=== PATIENT | male | born 1955 | race Caucasian/White ===

== ENCOUNTER 2023-10-24 17:02 | Emergency (ER) | payer MEDICARE, SELFPAY ==
[2023-10-24 17:03] VITALS: BP 146/86; PULSE 100; RESP 19; TEMP 36.4; O2SAT 100
[2023-10-24 17:53] LABS: Influenza A QL RT-PCR Negative (Negative); Influenza B QL RT-PCR Negative (Negative); RSV RNA, RT-PCR Negative (Negative); SARS-CoV-2 RNA PCR Negative (Negative)
[2023-10-24 19:45] VITALS: BP 149/83; PULSE 92; RESP 16; O2SAT 99
--- NOTE | 2023-10-24 19:45 | PC.NURSE ---
Pt and up to triage desk stating that they would like to leave. States they will attempt to get a PMD on Friday. VS rechecked and stable. Encouraged pt to stay to see ERP. Declined at this time. Pt axox4 and ambulatory to parking lot with steady gait.
== END 2023-10-24 20:59 | disposition left against medical advice (07) ==
PROVIDERS: Emergency Provider Emergency Medicine; PCP Internal Medicine
DX: R06.02 Shortness of breath (principal); Z20.822 Contact with and (suspected) exposure to COVID-19
CPT/HCPCS: 87637; 99199

== ENCOUNTER 2024-01-20 15:22 | Outpatient (CLI) | payer MEDICARE, OTHER, SELFPAY ==
--- NOTE | ~2024-01-20 | XR_ITS ---
XR chest 2V DATE: 01/20/2024 15:37 INDICATION: Dyspnea TECHNIQUE: 2 views COMPARISON: None FINDINGS: Heart size is upper limits of normal. There is aortic arch calcification and mild aortic un folding. Small pleural effusions, right greater than left. There is mild prominence of the fissures suggesting subpleural edema. Diffuse pulmonary interstitial prominence is noted, including Mc B lines, which may be due to pul monary interstitial edema and/or pulmonary interstitial fibrotic change. No prior radiographs are dian ilable for comparison. Moderate bilateral hyperinflation. Minimal atelectasis is suggested at the lung bases. No pneumothora x. Osteopenia. IMPRESSION: Congestive changes, including small pleural effusions Reviewed, dictated and finalized at location B.
== END 2024-01-20 15:23 ==
PROVIDERS: PCP Family Medicine; Visit Provider Family Medicine
DX: K62.5 Hemorrhage of anus and rectum (principal); R06.00 Dyspnea, unspecified; J90 Pleural effusion, not elsewhere classified
CPT/HCPCS: 71046

== ENCOUNTER 2024-01-22 15:43 | Outpatient (CLI) | payer MEDICARE, OTHER, SELFPAY ==
--- NOTE | ~2024-01-22 | CT_ITS ---
EXAMINATION: CT lung screening DATE: 01/22/2024 16:01 INDICATION: Z87.891 - Personal history of nicotine dependence TECHNIQUE: Computed tomography (CT) of the chest was performed without intravenous contrast. Addition al 3D reconstructions utilizing coronal maximum intensity projection (MIP) were performed. Automated exposure control and iterative reconstruction technique were employed. The dose-length product was 82 .22 mGy-cm. COMPARISON: None FINDINGS: Severe upper lung predominant emphysema with moderate biapical pleural-parenchymal scarring. Small bi lateral posterior layering pleural effusions, right greater than left with mild compressive atelectas is in the bilateral lower lobes. There is mild smooth septal line thickening at the bilateral lung ba ses consistent with minimal pulmonary edema. 4 mm nodule at the costophrenic angle of the right lower lobe. 5 mm spiculated nodule at the left upper lobe. There are a few additional scattered <4 mm pulm onary nodules in both lungs. Calcified right hilar lymph nodes along with multiple tiny splenic calci fications consistent with old granulomatous disease. Heart size normal there are coronary artery calc ifications. No pericardial effusion. Thoracic aorta is normal in caliber. Mild mediastinal and right hilar lymphadenopathy which is likely reactive. Mild thoracic spondylosis. IMPRESSION: 1. Lung-RADS category 2: Benign appearance or behavior. Continue annual screening with noncontrast lo w-dose chest CT in 12 months. 2. Severe emphysema. 3. Mild mediastinal and right hilar lymphadenopathy which is likely reactive. Reviewed, dictated and finalized at location A. IMPRESSION: 1. Lung-RADS category 2: Benign appearance or behavior. Continue annual screeni ng with noncontrast low-dose chest CT in 12 months. 2. Severe emphysema. 3. Mild mediastinal and right hilar lymphadenopathy which is likely reactive.
== END 2024-01-22 15:44 ==
LOC: MICIMG 15:44
PROVIDERS: PCP Family Medicine; Visit Provider Family Medicine
DX: Z12.2 Encounter for screening for malignant neoplasm of respiratory organs (principal); Z87.891 Personal history of nicotine dependence; J43.9 Emphysema, unspecified; R91.8 Other nonspecific abnormal finding of lung field
CPT/HCPCS: 71271

== ENCOUNTER 2024-02-05 07:19 | Day surgery (SDC) | payer MEDICARE, OTHER, SELFPAY ==
[2024-01-14 10:51] VITALS: BMI 23.6
[2024-01-27 11:18] VITALS: BMI 23.6
[2024-02-05 08:30] VITALS: BP 132/88; PULSE 75; RESP 18; TEMP 36.6; O2SAT 100; BMI 22.8
[2024-02-05] MEDS: LACTATED RINGERS 1,000 ML 150 ML IV CONT (08:43)
--- NOTE | 2024-02-05 09:08 | PM.HPGS ---
History of Present Illness History of Present Illness Consent: Risks, benefits, and alternatives have been discussed and questions answered. Patient agrees to proceed with procedure. Chief complaint: Hemorrhage of Anus and Rectum Narrative: Jayro Silvestre is a 68 year old male referred for colonoscopy. Patient has had bright red blood per rectum typically with wiping. This lasted for approximately 6 months. This appeared to be separate from bowel movements. He has had only occasional discomfort. The bleeding itself has lessened over the recent weeks. Patient denies any weight loss. He referred today for colonoscopy. Family history is noncontributory. Review of Systems Review of Systems: All systems reviewed & are unremarkable except as noted in HPI and below PMFSH Family History Family History (Updated 01/13/24 @ 07:30 by Tiny Caban CMA) Mother Cancer Social History Social History (Updated 01/13/24 @ 07:34 by Tiny Caban CMA) Smoking packs per day: 2 Smoking cigarettes per day: 40.0 Years smoked: 40 Smoking pack-years: 80.00 Smoking status: Heavy tobacco smoker Tobacco type: cigarettes Alcohol intake: current Drinks per week: 24 Alcohol use details: 12pack week plus Coor Light Substance use: never Substance use type: does not use Living arrangements: alone Gender identity (if verbalized by the patient): Male Sexual Orientation (if Verbalized by the Patient): Straight or Heterosexual Spiritual care concerns: No Agree to blood products: Yes Meds Home Medications and Allergies Home Medications Medication Instructions Recorded Confirmed Type albuterol sulfate 90 mcg/actuation 1 puff inhalation Q4H PRN 01/13/24 02/05/24 Rx aerosol inhaler shortness of breath or wheezing #8.5 grams aspirin 81 mg tablet,delayed 81 mg PO DAILY 01/13/24 02/05/24 History release (Adult Low Dose Aspirin) prednisone 20 mg tablet 40 mg PO DAILY #10 tabs 01/13/24 02/05/24 Rx tamsulosin 0.4 mg capsule 0.4 mg PO QHS #30 caps 01/13/24 02/05/24 Rx Allergies Allergy/AdvReac Type Severity Reaction Status Date / Time codeine AdvReac Mild Nausea Verified 02/05/24 08:10 Vital Signs Vital Signs - 24 hr 02/05/24 08:30 Temperature 98 F Pulse Rate 75 Respiratory Rate 18 Blood Pressure 132/88 Pulse Oximetry 100 Oxygen Delivery Room Air Exam Narrative: Physical exam reveals patient to be alert. Vital signs stable. HEENT exam is unremarkable. Patient is anicteric. Lungs is are clear to auscultation and percussion. Heart is without murmur or extra sounds. Abdomen bowel sounds are present soft nontender with no organomegaly. Digital external rectal exam normal. Assessment and Plan Assessment and plan (1) BRBPR (bright red blood per rectum): Code(s): K62.5 - Hemorrhage of anus and rectum Status: Acute Assessment and Plan: BRBPR With wiping that has persisted for 6 months. Appears to have lessened recently. Suspect this may be related hemorrhoids colonoscopy will be performed to exclude other conditions. He may benefit from surgical therapy of these hemorrhoids.
--- NOTE | 2024-02-05 09:11 | P.PNAN_ITS ---
Anes - Initial Pre Proc Eval Procedure: Operation Date: 02/05/24 09:30 Proposed Procedures p Diagnostic Colonoscopy - Jared Bone MD Date/Time: 02/05/24 09:11 Surgeon: Jared Bone MD Pre Op Diagnosis: Hemorrhage of Anus and Rectum Patient Data Age: 68 Gender: M Height: 1.83 m Weight: 76.6 kg Last Vital Signs Temp 36.6 C 02/05/24 08:30 Pulse 75 02/05/24 08:30 Resp 18 02/05/24 08:30 BP 132/88 02/05/24 08:30 Pulse Ox 100 02/05/24 08:30 O2 Del Method Room Air 02/05/24 08:30 Allergies Allergy/AdvReac Type Severity Reaction Status Date / Time codeine AdvReac Mild Nausea Verified 02/05/24 08:10 Home Medications Medication Instructions Recorded Confirmed Type albuterol sulfate 90 mcg/actuation 1 puff inhalation Q4H PRN 01/13/24 02/05/24 Rx aerosol inhaler shortness of breath or wheezing #8.5 grams aspirin 81 mg tablet,delayed 81 mg PO DAILY 01/13/24 02/05/24 History release (Adult Low Dose Aspirin) prednisone 20 mg tablet 40 mg PO DAILY #10 tabs 01/13/24 02/05/24 Rx tamsulosin 0.4 mg capsule 0.4 mg PO QHS #30 caps 01/13/24 02/05/24 Rx Patient hx anesthesia problems: none Family hx anesthesia problems: none Results Review: All pre-operative results and documents have been reviewed as part of the pre- operative evaluation. [facility]LY [facility], [facility] Past Medical History Medical History COPD (chronic obstructive pulmonary disease) CVA (cerebral vascular accident) Family History Family History Mother Cancer Social History Social History Smoking packs per day: 2 Smoking cigarettes per day: 40.0 Years smoked: 40 Smoking pack-years: 80.00 Smoking status: Heavy tobacco smoker Tobacco type: cigarettes Alcohol intake: current Drinks per week: 24 Alcohol use details: 12pack week plus Coor Light Substance use: never Substance use type: does not use Living arrangements: alone Gender identity (if verbalized by the patient): Male Sexual Orientation (if Verbalized by the Patient): Straight or Heterosexual Spiritual care concerns: No Agree to blood products: Yes Anes - Eval Final PreProcedure Day of Procedure 02/05/24 09:11 Patient weight: normal Heart: regular rate and rhythm Lungs: decreased breath sounds Airway: Mallampati scale class II Neurological: alert and oriented Last oral intake: >/= 8 hours ASA classification: III Emergent: no Anesthetic plan: proceed Anesthesia type and monitoring: general GIVS and standard monitoring Results Review: All pre-operative results and documents have been reviewed as part of the pre- operative evaluation. Informed Consent: The patient's anesthetic plan and its attendant risks and benefits were discussed with the patient/family/POA. Questions were solicited and answers provided to the satisfaction of the patient/family/POA.
[2024-02-05 10:15] VITALS: BP 107/67; PULSE 63; RESP 16; O2SAT 95
[2024-02-05 10:25] VITALS: BP 100/57; PULSE 70; RESP 16; O2SAT 97
--- NOTE | 2024-02-05 10:34 | WPDANESPN ---
Anes - Prog Note Post-Op Date/Time: 02/05/24 10:34 Cardiovascular status: normal Respiratory status: normal Airway patency: baseline Mental status: baseline Post-Op hydration status: normal Vital Signs: Last Vital Signs Temp 36.6 C 02/05/24 08:30 Pulse 70 02/05/24 10:25 Resp 16 02/05/24 10:25 BP 100/57 L 02/05/24 10:25 Pulse Ox 97 02/05/24 10:25 O2 Del Method Room Air 02/05/24 10:25 Pain Score (VAS): 0 I/O: Intake & Output 02/04/24 02/05/24 02/05/24 23:59 07:59 15:59 Intake Total 600 Balance 600 Patient Feedback: Patient satisfied with anesthetic care.
[2024-02-05 10:35] VITALS: BP 115/72; PULSE 70; RESP 20; O2SAT 95
== END 2024-02-05 10:47 | disposition home or self-care (01) ==
PROVIDERS: PCP Family Medicine; Visit Provider Internal Medicine Gastroenterology
PROC: 0DJD8ZZ Inspection of Lower Intestinal Tract, Via Natural or Artificial Opening Endoscopic (ICD-10-PCS; CPT 45378; principal; 2024-02-05 09:30)
DX: K62.5 Hemorrhage of anus and rectum (principal); D12.5 Benign neoplasm of sigmoid colon; K57.30 Diverticulosis of large intestine without perforation or abscess without bleeding; K64.8 Other hemorrhoids
CPT/HCPCS: 45385

== ENCOUNTER 2024-02-05 10:44 | Outpatient (NON) | payer MEDICARE, OTHER, SELFPAY | END 2024-02-05 10:45 | disposition home or self-care (01) | LOC: ANHLAB 02-06 10:47 | PROVIDERS: PCP Family Medicine; Visit Provider Internal Medicine Gastroenterology | DX: K62.5 Hemorrhage of anus and rectum (principal); D12.4 Benign neoplasm of descending colon; D12.5 Benign neoplasm of sigmoid colon | CPT/HCPCS: 88305 ==

== ENCOUNTER 2024-02-18 05:34 | Inpatient (IN) | payer MEDICARE, OTHER, SELFPAY ==
[2024-02-18] VITALS (31 sets, daily range): BP systolic 115–158; BP diastolic 64–111; PULSE 65–137; RESP 14–28; TEMP 36.4–36.8; O2SAT 87–98
--- NOTE | 2024-02-18 | ECHO_ITS ---
Patient Info Name: Jayro Silvestre Age: 68 years : 1955 Gender: Male Ht: 72 in Wt: 169 lbs BSA: 1.97 m2 HR: 77 bpm BP: 115 / 64 mmHg Heart Rhythm: Sinus Rhythm Technical Quality: Good Exam Date: 02/18/2024 3:16 PM Exam Location: Echo Lab Patient Status: Inpatient Admit Date: 02/18/2024 Staff Ordering Physician: Karen Latham APRN Sand Molder: Hilario Schulte RDCS Attending Provider: Elicia Caicedo MD Referring Physician: Noa ELLIS; Exam Type: CA echo dop color flow w con Study Info Indications - elevated bnp R06.02 - Shortness of breath Complete two-dimensional, color flow and Doppler transthoracic echocardiogram is performed with contrast to opacify the left ventricle and to improve the deliniation of the left ventricle endocardial borders. Contrast/Agitated Saline Contrast/Ag. Saline: Definity Amount: 5.00 ml Existing IV Access: Yes Summary 1. Left ventricular chamber dimension is severely enlarged. 2. Left ventricular systolic function is severely reduced, estimated at 20-25%. 3. There is mildly increased left ventricular wall thickness. 4. The left ventricular diastolic function is grade III diastolic dysfunction. 5. Left atrial chamber dimension is severely enlarged. 6. There is mild aortic valve regurgitation. 7. There is moderate mitral valve regurgitation. 8. There is mild tricuspid valve regurgitation. 9. Mild pulmonary hypertension, estimated pulmonary arterial systolic pressure is 40 mmHg. 10. The aortic root size at the sinus of Valsalva is mildly dilated. Left Ventricle Left ventricular chamber dimension is severely enlarged. Left ventricular systolic function is severely reduced, estimated at 20-25%. There is mildly increased left ventricular wall thickness. The left ventricular diastolic function is grade III diastolic dysfunction. Right Ventricle Right ventricular chamber dimension is normal. Right ventricular systolic function is normal. Left Atria Left atrial chamber dimension is severely enlarged. Right Atria Right atrial chamber dimension is normal. Atrial Septum Suspected patent foramen ovale visualized by color flow imaging. Aortic Valve The aortic valve is trileaflet. There is mild aortic valve sclerosis. There is no aortic valve stenosis. There is mild aortic valve regurgitation. Pulmonic Valve The pulmonic valve is normal. There is no pulmonic valve stenosis. There is trace pulmonic regurgitation. Mitral Valve The mitral valve has thickened leaflets. There is no mitral valve stenosis. There is moderate mitral valve regurgitation. Tricuspid Valve The tricuspid valve leaflets are normal. There is no significant tricuspid valve stenosis. There is mild tricuspid valve regurgitation. Mild pulmonary hypertension, estimated pulmonary arterial systolic pressure is 40 mmHg. Pericardium/Pleural The pericardium appears normal. There is trivial pericardial effusion. Inferior Vena Cava Dilated inferior vena cava with <50% collapse upon inspiration consistent with elevated right atrial pressure, 15 mmHg. Aorta The aortic root size at the sinus of Valsalva is mildly dilated. Left Ventricular Outflow Tract Name Value Normal LVOT 2D LVOT Diameter 2.24 cm L
--- NOTE | ~2024-02-18 | XR_ITS ---
EXAMINATION: XR chest 1V portable DATE: 02/18/2024 05:57 INDICATION: Dyspnea. TECHNIQUE: A single frontal view of the chest was obtained on 2 radiographs. COMPARISON: Chest 2 views 01/20/2024, chest CT 01/22/2024 FINDINGS: There are lucencies in the lungs, consistent with emphysema. There is a diffuse interstitia l pattern in the lungs, consistent with pulmonary edema. There are small pleural effusions. No pneumo thorax. The heart size is normal. IMPRESSION: 1. Mild pulmonary edema. 2. Small pleural effusions. 3. Severe emphysema. Reviewed, dictated and finalized at location A.
--- NOTE | ~2024-02-18 | US_ITS ---
EXAMINATION: US arterial ankle brachial ind DATE: 02/20/2024 10:55 INDICATION: Claudication and leg cramping. Tobacco abuse. TECHNIQUE: Segmental pressures and plethysmographic and Doppler waveforms of the brachial and lower e xtremity arteries were obtained. COMPARISON: None. FINDINGS: Right and left brachial artery pressures of 116 mm Hg and 121 mm Hg, respectively, are concordant (no rmal difference <= 30 mmHg). The right ankle-brachial index (VERO) is 0.88 (normal >= 0.9-1.0). The right great toe-brachial index (TBI) is 0.50 (normal >= 0.65). Arterial Doppler waveforms are biphasic at the right posterior tibial artery and monophasic at the right dorsalis pedis artery, both with brisk systolic upstrokes. The left VERO is 0.54. The left TBI is 0.25. Arterial Doppler waveforms are biphasic with brisk systo lic upstrokes at both left posterior tibial and dorsalis pedis arteries. IMPRESSION: 1. Arterial occlusive disease to bilateral lower limbs with mildly decreased right VERO and TBI and mo derately decreased left VERO and TBI. Reviewed, dictated and finalized at location A. IMPRESSION: 1. Arterial occlusive disease to bilateral lower limbs with mildly decreased ri ght VERO and TBI and moderately decreased left VERO and TBI.
--- NOTE | 2024-02-18 05:40 | ECG_ITS ---
Test Date: 2024-02-18 05:41:15 Measurements Intervals [place] Rate: 133 P: 70 SD: 151 QRS: 11 QRSD: 121 T: 86 QT: 292 QTc: 435 Interpretive Statements SINUS TACHYCARDIA WITH OCCASIONAL VENTRICULAR PREMATURE COMPLEXES MODERATE INTRAVENTRICULAR CONDUCTION DELAY [110+ ms QRS DURATION] NONSPECIFIC ST & T-WAVE ABNORMALITY No previous ECG available for comparison Electronically Signed On 02-18-2024 14:46:04 CDT by Max Smith M.D.
--- NOTE | 2024-02-18 05:49 | ED.GENADULT ---
HPI - General Adult General Chief complaint: Shortness of Breath/Dyspnea Stated complaint: DIFFICULTY IN BREATHING Time Seen by Provider: 02/18/24 05:42 History of Present Illness HPI narrative: patient is a 68-year-old gentleman who presents emergency department with chief complaint of shortness of breath. Patient reports he has history of COPD uses inhalers of the does not use home oxygen. The patient reports that he still smokes reports that last couple of days been having progressive shortness of breath. Patient reports he EMS was called this morning his symptoms got worse he was found to be profoundly hypoxic and also to be tachycardic and tachypneic. Related Data Home Medications Medication Instructions Recorded Confirmed aspirin 81 mg tablet,delayed 81 mg PO DAILY 01/13/24 02/05/24 release (Adult Low Dose Aspirin) Allergies Allergy/AdvReac Type Severity Reaction Status Date / Time codeine AdvReac Mild Nausea Verified 02/05/24 08:10 Review of Systems Review of Systems: A 10 system review of systems was completed on the patient and is negative except for what is stated in the HPI. Nursing and ancillary documentation was reviewed. [facility] Past Medical History Medical History COPD (chronic obstructive pulmonary disease) CVA (cerebral vascular accident) Family History Family History Mother Cancer Social History Social History Smoking packs per day: 2 Smoking cigarettes per day: 40.0 Years smoked: 40 Smoking pack-years: 80.00 Smoking status: Heavy tobacco smoker Tobacco type: cigarettes Alcohol intake: current Drinks per week: 24 Alcohol use details: 12pack week plus Coor Light Substance use: never Substance use type: does not use Living arrangements: alone Gender identity (if verbalized by the patient): Male Sexual Orientation (if Verbalized by the Patient): Straight or Heterosexual Spiritual care concerns: No Agree to blood products: Yes Exam Narrative: GENERAL: Well-appearing, well-nourished, and in no acute distress. HEAD: Normocephalic, atraumatic. EYES: PERRLA and EOMI. ENT: Nares clear, no rhinorrhea or epistaxis. Mucous membranes moist. NECK: Supple. CHEST: diminished breath sounds to auscultation. mild increased respiratory rate. HEART: Effective for rate and regular rhythm. No murmur heard. Normal peripheral pulses. ABDOMEN: Soft, nontender, nondistended, normal active bowel sounds. EXTREMITIES: Normal range of motion. No edema. SKIN: Warm, dry, no rash. NEURO: No focal deficits. Alert and oriented x3. PSYCH: Normal mood and affect. Course Vital Signs Vital signs: Vital Signs Temperature 36.8 C 02/18/24 05:27 Pulse Rate 137 H 02/18/24 05:27 Respiratory Rate 26 H 02/18/24 05:27 Blood Pressure 158/111 H 02/18/24 05:27 Pulse Oximetry 87 L 02/18/24 05:27 Oxygen Delivery Room Air 02/18/24 05:27 Temperature 36.8 C 02/18/24 05:27 Pulse Rate 125 H 02/18/24 06:00 Respiratory Rate 28 H 02/18/24 06:00 Blood Pressure 125/93 H 02/18/24 05:49 Pulse Oximetry 95 02/18/24 05:49 Oxygen Delivery Nasal Cannula 02/18/24 05:41 Oxygen Flow Rate 2 02/18/24 05:41 Medical Decision Making [facility] Narrative Medical decision making narrative: differential diagnosis includes pneumonia, CHF, pulmonary edema, ACS tele EKG showed sinus tachycardia patient's oxygen levels improved with 2 L nasal cannula ABG showed a pH of 7.314 pCO2 is 44.5 PO2 of 76.3 with a 94% saturation electrolytes showed a BUN of 25 and creatinine 1.8 we do not have a previous 1 to compare to magnesium was 1.9 chest x-ray showed FINDINGS: There are lucencies in the lungs, consistent with emphysema. There is a diffuse interstitial pattern in the lungs,
[2024-02-18] MEDS: IPRATROPIUM BR 0.02% INH SOLN 0.5 MG/2.5 ML VIAL 1 MG INHALATION (05:56)
[2024-02-18] MEDS: ALBUTEROL SULFATE NEB 2.5 MG/3 ML INH 10 MG INHALATION (05:56)
[2024-02-18 06:06] LABS: Basophils Absolute Auto 0.1 K/mm3 (0.0-0.1); Basophils Percent Auto 0.5 % (0.2-1.2); Eosinophils Absolute Auto 0.1 K/mm3 (0-0.3); Eosinophils Percent Auto 0.8 % (0-4.4); Hematocrit 51.7 % (42.0-52.0); Immature Granulocyte Absolute 0.03 K/mm3 (0.00-0.031); Immature Granulocyte Percent A 0.2 % (0-0.5); Lymphocytes Absolute Auto 3.69 K/mm3 (0.9-3.2); Lymphocytes Percent Auto 28.3 % (18.3-44.2); Mean Corpuscular HGB Conc 32.9 g/dl (32-36); Mean Corpuscular Hemoglobin 32.6 pg (26-34); Mean Platelet Volume 11.1 fl (7.4-10.4); Monocytes Percent Auto 7.7 % (2.6-8.5); Neutrophils Absolute Auto 8.1 K/mm3 (1.3-6.7); Neutrophils Percent Auto 62.5 % (45.5-73.1); Platelet Count Result 233 k/mm3 (150-375); Red Blood Count 5.22 M/mm3 (4.6-6.20); Red Cell Distribution Width 14.2 % (11.5-14.5)
[2024-02-18] MEDS: methylPREDNISolone SOD SUCC 125 MG VIAL IV PUSH (06:13)
[2024-02-18] MEDS: SODIUM CHLORIDE 0.9% IV 1,000 ML 999 ML IV CONT (06:13)
[2024-02-18 06:15] LABS: Alveolar/Arterial O2 Gradient 230.1 mmHg; Base Excess ABG -4.1 mEq/l (+/-2.0); Fractional Inspired Oxygen 50 %; HCO3 ABG 22.1 mEq/l (22.0-26.0); Oxygen Content ABG 21.6 %vol (16.0-22.0); Oxygen Saturation ABG 94.1 % (95.0-100.0); Oxyhemoglobin 91.4 % THb (90.0-100.0); PCO2 ABG 44.5 mmHg (35.0-45.0); PO2 ABG 76.3 mmHg (80.0-100.0); PO2 FiO2 Ratio Arterial Blood 1.53 %; Total Hemoglobin 16.8 g/dL (12.0-18.0); pH ABG 7.314 (7.350-7.450)
[2024-02-18 06:17] LABS: Alanine Aminotransferase 44 U/L (6-50); Albumin Level 4.4 g/dL (3.5-5.1); Alkaline Phosphatase 87 U/L (38-126); Anion Gap 10 mmol/L (4-12); Aspartate Amino Transferase 52 U/L (17-59); Bilirubin,Total 0.6 mg/dL (0.2-1.3); Blood Urea Nitrogen 25 mg/dL (9-20); Calcium 8.5 mg/dL (8.4-10.2); Carbon Dioxide 23 mmol/L (22-30); Chloride 111 mmol/L (98-107); Estimated CRCL calculation 40 ml/min; Estimated Glomerular Filt Rate 38; Glucose 121 mg/dL (65-110); Potassium 3.9 mmol/L (3.4-5.0); Sodium 144 mmol/L (137-145)
[2024-02-18 06:17] LABS: Modified Allen's Test Pass; Site Drawn RIGHT RADIAL
[2024-02-18 06:18] LABS: Device OTHER DEVICE
[2024-02-18 06:23] LABS: Lipase 46 U/L (23-300); Magnesium 1.9 mg/dL (1.6-2.3)
[2024-02-18 06:37] LABS: NT Pro B Type Natriuretic Pept 14800 pg/mL (19.9-100); Troponin I 0.039 ng/mL (0.000-0.034)
[2024-02-18 06:42] LABS: Lactic Acid Reflex 1.5 mmol/L (0.7-2.0)
[2024-02-18 06:51] LABS: Procalcitonin 0.1 ng/mL
[2024-02-18] MEDS: ASPIRIN 81 MG CHEWABLE TABLET 324 MG PO (06:51)
[2024-02-18 07:09] LABS: Influenza A QL RT-PCR Negative (Negative); Influenza B QL RT-PCR Negative (Negative); RSV RNA, RT-PCR Negative (Negative); SARS-CoV-2 RNA PCR Negative (Negative)
[2024-02-18] MEDS: FUROSEMIDE INJ 40 MG/4 ML VIAL IV PUSH ×2 (07:34→20:43)
[2024-02-18] MEDS: IPRATROPIUM 0.5 MG/ALBUTEROL SULFATE 2.5 MG AMPUL.NEB 3 ML INHALATION ×3 (08:22→20:16)
[2024-02-18 11:02] LABS: Appearance Urine Clear (Clear); Bacteria Urine None Seen /hpf; Bilirubin Urine Negative (Negative); Blood Urine 1+ (Negative); Calcium Oxalate Crystals Urine Present /hpf; Color Urine Yellow (Yellow); Glucose Urine UA Negative (Negative); Ketones Urine Negative (Negative); Leukocyte Esterase Ur Negative LEU/UL (Negative); Nitrate Urine Negative (Negative); Non Pathogenic Casts 0-2; Protein Urine 1+ mg/dL (Negative); Squamous Epithelial Cell Urine None Seen /hpf (Few); Urobilinogen Urine 0.2 mg/dL (<2.0); WBC Urine 0-5 /hpf (0-3)
[2024-02-18 11:03] LABS: Add Urine Microscopic? YES
--- NOTE | 2024-02-18 12:18 | ECG_ITS ---
Test Date: 2024-02-18 13:31:25 Measurements Intervals [place] Rate: 77 P: 13 [place]: 160 QRS: 4 QRSD: 117 T: 245 QT: 422 QTc: 478 Interpretive Statements SINUS RHYTHM WITH SINUS ARRHYTHMIA INCOMPLETE RIGHT BUNDLE BRANCH BLOCK [90+ ms QRS DURATION, TERMINAL R IN V1/V2, 40+ ms S IN I/aVL/V4/V5/V6] LEFT VENTRICULAR HYPERTROPHY INFEROLATERAL ST AND T-WAVE ABNORMALITY, CONSIDER ISCHEMIA POSSIBLE SEPTAL MYOCARDIAL INFARCTION , PROBABLY OLD [30 ms Q WAVE IN V1/V2] ABNORMAL ECG Electronically Signed On 02-19-2024 15:05:34 CDT by Milad Frye M.D.
[2024-02-18 13:09] LABS: Troponin I 0.225 ng/mL (0.000-0.034)
--- NOTE | 2024-02-18 13:38 | PC.NURSE ---
spoke with Dr Caicedo, educated on increased troponin. stated if pt has CP, he should go to IMU, if not Tele would be appropriate spoke to Karen CABALLERO, will add additional lab tests. pt is asymptomatic, states feeling better
[2024-02-18] MEDS: methylPREDNISolone SOD SUCC 125 MG VIAL 60 MG IV PUSH ×2 (14:18→20:45)
[2024-02-18] MEDS: PERFLUTREN LIPID MICROSPHERES 1.5 ML VIAL DILUTED TO 10 ML TOTAL VOLUME IV PUSH (15:57)
--- NOTE | 2024-02-18 15:57 | IVDEFINITY ---
Prior to administration of IV Definity the patient was educated on the risks and benefits of the imaging enhancing agent including potential adverse side effects. The patient verbalized understanding. Allergies were verified. No exclusion criteria were identified and at least one of the following inclusion criteria were met: 1) physician request, 2) patient technically difficult to image (per the [place] [employer] guidelines of two or more segments not discernable within the apical view), or 3) questionable left ventricular function. ?
--- NOTE | 2024-02-18 16:07 | ADMGEN ---
This patient, Jayro Silvestre, was admitted to Medical Room 261-01. Patient/family oriented to hospital policies and general routines including ID bracelet, bed and alarms, visiting hours, pain management, procedures, bathroom and other care routines, personal items, smoking policy, room service/diet, and visiting hours. Information on how to activate the Rapid Response Team has been discussed. Patient/Family are encouraged to report perceived risks to care and to ask questions if they do not understand what they are told or what they should do.
[2024-02-18] MEDS: AZITHROMYCIN 500 MG/NS 250 ML 500 MG/250 ML BAG 250 MG IVPB (16:36)
[2024-02-18 16:43] LABS: Troponin I 0.238 ng/mL (0.000-0.034)
--- NOTE | 2024-02-18 21:21 | PM.IMHP ---
H&P: HPI History of Present Illness Date/Time: 02/18/24 14:38 Chief Complaint: Shortness of Breath Narrative: 68 y/o M presents here with shortness of breath with PMH of COPD, BPH, and CVA (2019). The patient presents here from home via EMS for further evaluation of shortness of breath and hypoxia. Patient reports he has been short of breath for the past 6 months and has been insidious. However worsened significantly in the last month. Today he was unable to take his inhaler due to the severity of the shortness of breath which prompted him to call EMS. Accompanied by cough intermittent and somewhat copious. Denying fever, chills, body aches, or lower extremity swelling. Patient reports previously that he only obtained relief from his shortness of breath with oral steroids. Per EMS report, patient was outside in distress upon their arrival. Initial sat was 75% on room air. Given 2 DuoNeb treatments in route to the hospital and increased briefly 96% on RA. Arrived to [facility] ED with sat of 87% on RA. No recent travel/long car rides, no recent major surgeries, did have a colonoscopy last week. Current smoker 1.5-2 PPD for the past 45 years, is interested in cessation. Initial VS at presentation: 98.2? F, HR 137, RR 26, 158/111, and 87% on RA. ED workup showed: WBC 13.0, no anemia, creatinine 1.8 and GFR 38 (no previous for comparison), initial troponin 0.039, BNP 95334, procal 0.1, UA not consistent with UTI. Viral PCR negative. CXR showed mild pulmonary edema, small pleural effusions, and severe emphysema. Review of Systems Review of Systems: All systems reviewed & are unremarkable except as noted in HPI and below [facility] Past Medical History Medical History (Updated 02/18/24 @ 21:31 by Karen Latham APRN) BPH (benign prostatic hyperplasia) COPD (chronic obstructive pulmonary disease) Current every day smoker CVA (cerebral vascular accident) (2019) HLD (hyperlipidemia) Kidney stones Vitamin D deficiency Surgical History Surgical History History of lithotripsy Family History Family History (Updated 02/18/24 @ 16:08 by Citlaly Luna RN) Mother Cancer Father Cancer Social History Social History Smoking packs per day: 2 Smoking cigarettes per day: 40.0 Years smoked: 40 Smoking pack-years: 80.00 Smoking status: Current every day smoker Tobacco type: cigarettes Alcohol intake: current Drinks per week: 20 Alcohol use details: 12pack week plus Coor Light Substance use: never Substance use type: does not use Do You Feel Safe in your Home?: Yes Lack of Transportation: No Lack of Food: Never True Current Housing: I Have Housing Concerned About Future Housing: No Difficulty Paying Gas/Electric Bills: No Difficulty Paying for Meds: YES Currently Unemployed: No Education: High School Diploma/GED Difficulty w/ Childcare or Family Care: No Living arrangements: alone Gender identity (if verbalized by the patient): Male Sexual Orientation (if Verbalized by the Patient): Straight or Heterosexual Spiritual care concerns: No Agree to blood products: Yes Meds Home Medications and Allergies Home Medications Medication Instructions Recorded Confirmed Type albuterol sulfate 90 mcg/actuation 1 puff inhalation Q4H PRN 01/13/24 02/18/24 Rx aerosol inhaler shortness of breath or wheezing #8.5 grams aspirin 81 mg tablet,delayed 81 mg PO DAILY 01/13/24 02/18/24 History release (Adult Low Dose Aspirin) prednisone 20 mg tablet 40 mg PO DAILY #10 tabs 01/13/24 02/18/24 Rx tamsulosin 0.4 mg capsule 0.4 mg PO QHS #30 caps 01/13/24 02/18/24 Rx bupropion HCl 150 mg 24 hr tablet, 150 mg PO QAM #90 tabs 02/10/24 02/18/24 Rx extended release (Wellbutrin XL) cholecalciferol (vitamin D3) 1,250 1,250 mcg PO WEEKLY #14 tabs 02/10/24 02/18/24 Rx mcg (50,000 u
[2024-02-19] VITALS (19 sets, daily range): BP systolic 120–123; BP diastolic 72–85; PULSE 62–103; RESP 17–20; TEMP 36.5–36.8; O2SAT 92–96
[2024-02-19] MEDS: IPRATROPIUM 0.5 MG/ALBUTEROL SULFATE 2.5 MG AMPUL.NEB 3 ML INHALATION ×4 (02:22→20:23)
[2024-02-19] MEDS: methylPREDNISolone SOD SUCC 125 MG VIAL 60 MG IV PUSH ×2 (05:43→17:09)
[2024-02-19 06:08] LABS: Basophils Percent Auto 0.1 % (0.2-1.2); Hematocrit 47.1 % (42.0-52.0); Hemoglobin 15.5 g/dL (14.0-18.0); Immature Granulocyte Absolute 0.09 K/mm3 (0.00-0.031); Immature Granulocyte Percent A 0.6 % (0-0.5); Lymphocytes Absolute Auto 0.78 K/mm3 (0.9-3.2); Lymphocytes Percent Auto 5.5 % (18.3-44.2); Mean Corpuscular HGB Conc 32.9 g/dl (32-36); Mean Corpuscular Hemoglobin 32.1 pg (26-34); Mean Corpuscular Volume 97.5 fl (80-100); Mean Platelet Volume 11.6 fl (7.4-10.4); Monocytes Absolute Auto 0.4 K/mm3 (0.1-0.6); Monocytes Percent Auto 3.1 % (2.6-8.5); Neutrophils Absolute Auto 12.8 K/mm3 (1.3-6.7); Neutrophils Percent Auto 90.7 % (45.5-73.1); Platelet Count Result 194 k/mm3 (150-375); Red Blood Count 4.83 M/mm3 (4.6-6.20); Red Cell Distribution Width 14.1 % (11.5-14.5); White Blood Count 14.2 K/mm3 (4.5-10.0)
[2024-02-19 06:24] LABS: Alanine Aminotransferase 31 U/L (6-50); Albumin Level 3.9 g/dL (3.5-5.1); Alkaline Phosphatase 77 U/L (38-126); Anion Gap 8 mmol/L (4-12); Aspartate Amino Transferase 19 U/L (17-59); Bilirubin,Total 0.6 mg/dL (0.2-1.3); Blood Urea Nitrogen 34 mg/dL (9-20); Calcium 8.4 mg/dL (8.4-10.2); Carbon Dioxide 26 mmol/L (22-30); Chloride 105 mmol/L (98-107); Cholesterol 174 mg/dL (0-200); Estimated CRCL calculation 38 ml/min; Estimated Glomerular Filt Rate 36; Glucose 123 mg/dL (65-110); HDL Direct 53 mg/dL; Potassium 4.1 mmol/L (3.4-5.0); Sodium 139 mmol/L (137-145); Triglycerides 55 mg/dL (<150)
[2024-02-19 06:35] LABS: LDL Cholesterol Direct 105 mg/dL
[2024-02-19 06:55] LABS: Hemoglobin A1C 5.3 % (<5.7)
[2024-02-19] MEDS: buPROPion HCL XL (24 HR) 150 MG TABCR PO (08:07)
[2024-02-19] MEDS: guaiFENesin 12 HR 600 MG TABCR PO ×2 (08:07→20:13)
[2024-02-19] MEDS: ASPIRIN 81 MG ENTERIC TABLET PO (08:07)
[2024-02-19] MEDS: FUROSEMIDE INJ 40 MG/4 ML VIAL IV PUSH (08:08)
[2024-02-19 09:01] LABS: Free T4 Free Thyroxine Reflex 0.56 ng/dL (0.78-2.19)
--- NOTE | 2024-02-19 11:54 | PM.IMPN ---
Progress Note: A&P Assessment and Plan (1) Acute hypoxemic respiratory failure: Code(s): J96.01 - Acute respiratory failure with hypoxia Status: Acute Assessment and Plan: - CXR: Mild pulmonary edema. Small pleural effusions. Severe emphysema. - BNP 14,800 - echo pending - not currently on a diuretic, starting Lasix IVP 40 mg daily - daily weights and monitor I&Os - trend renal function - troponin elevated, see below - Well Criteria: 1.5 points, low risk group - telemetry monitoring - suspect multifactorial: new onset CHF and/or COPD exacerbation. Cannot rule out NSTEMI or PE. - hypoxia resolved. (2) Elevated troponin: Code(s): R79.89 - Other specified abnormal findings of blood chemistry Status: Acute Assessment and Plan: - EKG, initial: Sinus tachycardia with occasional PVCs, rate 133, moderate intraventricular conduction delay, nonspecific ST and T-wave abnormality. No previous for comparison. - EKG, repeat (1): Sinus rhythm with sinus arrhythmia, rate 77, incomplete RBBB, left ventricular hypertrophy and ST-T change, possible septal FL infarct probably old. Awaiting formal read. - CXR: Mild pulmonary edema. Small pleural effusions. Severe emphysema. - Troponin: 0.039 -> 0.225 -> 0.238 -> 0.180 - ASA 324 given and SL nitro PRN - lipid panel normal , A1C 5.3, and TSH 15.2 - echo pending - telemetry monitoring - suspect elevation due to tachycardia and hypoxia resulting in demand ischemia (3) COPD exacerbation: Code(s): J44.1 - Chronic obstructive pulmonary disease with (acute) exacerbation Status: Acute Assessment and Plan: - DuoNebs Q6H ADELAIDA - continue Solu-Medrol IVP - start to wean off IV steroids - start azithromycin and ceftriaxone on 02/17 - mucinex ADELAIDA (4) Current every day smoker: Code(s): F17.200 - Nicotine dependence, unspecified, uncomplicated Status: Acute Assessment and Plan: - 1.5-2 PPD x 45 years - interested in cessation, declined nicotine patch - currently on Wellbutrin XL Plan Patient here with shortness of breath. Ruling out new CHF and will treat as concurrent COPD exacerbation. Troponin uptrending initially and now plateaued, suspect this is due to demand (tachycardia) and hypoxia. No active CP. Continue telemetry monitoring. Diet: heart healthy GI Prophylaxis: not currently indicated DVT Prophylaxis: SCDs Lines: peripheral Code Status: full code Subjective Date/time seen: 02/19/24 11:54 Interval history: Patient doing much better today. He is no longer requiring any oxygen. Echocardiogram pending. He denies shortness of breath, chest pain, orthopnea and cough. Exam Narrative: GENERAL: Comfortable, no acute distress HENMT: moist mucous membranes NECK: no lymphadenopathy RESPIRATORY: clear to auscultation although distant, no increased respiratory effort CARDIO: distant heart sounds. GI: soft, nontender, bowel sounds present SKIN/EXTREMITIES: no rashes, no edema, no redness or tenderness NEURO: PROM intact, answers questions appropriately, A&O x4 Objective Data Vital Signs Vital Signs: Vital Signs - 24 hr 02/18/24 12:01 02/18/24 12:16 02/18/24 12:31 Temperature Pulse Rate 67 76 69 Respiratory Rate 16 18 18 Blood Pressure 120/80 132/70 131/64 Pulse Oximetry 96 96 96 Oxygen Delivery Oxygen Flow Rate Fraction of Inspired Oxygen 02/18/24 12:46 02/18/24 13:01 02/18/24 13:16 Temperature Pulse Rate 71 78 74 Respiratory Rate 15 14 17 Blood Pressure 116/77 121/78 115/64 Pulse Oximetry 97 96 96 Oxygen Delivery Oxygen Flow Rate Fraction of Inspired Oxygen 02/18/24 14:16 02/18/24 15:05 02/18/24 15:25 Temperature 97.5 F L Pulse Rate 77 76 Respiratory Rate 18 20 Blood Pressure 134/68 Pulse Oximetry 98 98 Oxygen Delivery Nasal Cannula Oxygen Flow Rate 2 Fraction of Inspired Oxygen 02/18/24 20:19 02/18/24 20:22
[2024-02-19] MEDS: AZITHROMYCIN 500 MG/NS 250 ML 500 MG/250 ML BAG 250 MG IVPB (17:10)
[2024-02-19] MEDS: TAMSULOSIN HCL 0.4 MG CAPSULE PO (20:13)
[2024-02-19] MEDS: MELATONIN 3 MG TABLET PO (21:11)
[2024-02-20] VITALS (34 sets, daily range): BP systolic 109–133; BP diastolic 61–98; PULSE 69–102; RESP 12–20; TEMP 36.3–36.6; O2SAT 88–97
[2024-02-20] MEDS: IPRATROPIUM 0.5 MG/ALBUTEROL SULFATE 2.5 MG AMPUL.NEB 3 ML INHALATION ×4 (01:52→21:13)
[2024-02-20] MEDS: methylPREDNISolone SOD SUCC 125 MG VIAL 60 MG IV PUSH ×2 (05:20→18:12)
[2024-02-20 05:27] LABS: Hematocrit 47.3 % (42.0-52.0); Hemoglobin 15.6 g/dL (14.0-18.0); Mean Corpuscular Hemoglobin 32.2 pg (26-34); Mean Corpuscular Volume 97.7 fl (80-100); Platelet Count Result 205 k/mm3 (150-375); Red Blood Count 4.84 M/mm3 (4.6-6.20); White Blood Count 15.1 K/mm3 (4.5-10.0)
[2024-02-20 05:37] LABS: Anion Gap 7 mmol/L (4-12); Blood Urea Nitrogen 43 mg/dL (9-20); Calcium 8.7 mg/dL (8.4-10.2); Carbon Dioxide 27 mmol/L (22-30); Chloride 104 mmol/L (98-107); Estimated CRCL calculation 38 ml/min; Estimated Glomerular Filt Rate 36; Glucose 115 mg/dL (65-110); Potassium 4.7 mmol/L (3.4-5.0); Sodium 138 mmol/L (137-145)
[2024-02-20] MEDS: buPROPion HCL XL (24 HR) 150 MG TABCR PO (08:45)
[2024-02-20] MEDS: FUROSEMIDE INJ 40 MG/4 ML VIAL IV PUSH (08:45)
[2024-02-20] MEDS: LEVOTHYROXINE SODIUM 50 MCG TABLET PO (08:45)
[2024-02-20] MEDS: guaiFENesin 12 HR 600 MG TABCR PO ×2 (08:45→20:34)
[2024-02-20] MEDS: ASPIRIN 81 MG ENTERIC TABLET PO (08:45)
--- NOTE | 2024-02-20 09:26 | PM.CNCAR ---
Assessment and Plan Assessment and plan (1) Elevated troponin: Code(s): R79.89 - Other specified abnormal findings of blood chemistry Status: Acute Assessment and Plan: Likely secondary to heart failure not ACS/acute plaque rupture (2) New onset of congestive heart failure: Code(s): I50.9 - Heart failure, unspecified Status: Acute Assessment and Plan: As detailed below. Systolic in etiology. (3) Acute systolic (congestive) heart failure: Code(s): I50.21 - Acute systolic (congestive) heart failure Status: Acute Assessment and Plan: Severe cardiomyopathy ejection fraction 20 25%. Will DC IV furosemide and switch him to oral furosemide 40 mg Po daily. Adding carvedilol, Entresto. Catheterization to rule out ischemic disease. Up titrate meds as able. LifeVest of upon discharge. (4) Cardiomyopathy: Code(s): I42.9 - Cardiomyopathy, unspecified Status: Acute Assessment and Plan: New onset. At this point, uncertain etiology. May be related to chronic alcohol use. May be related to underlying coronary disease. Will keep NPO for coronary angiogram today. Continue aspirin 81 mg p.o. daily. Will add carvedilol 6.25 mg p.o. b.i.d.. Add low-dose Entresto 24/26 mg 1 tablet p.o. b.i.d. also. Will need to assess renal function and as well as potassium. As able, add to this regimen including up titrating carvedilol and Entresto and adding Jardiance or Farxiga and spironolactone. Some this obviously will be dependent on the cause/etiology of his cardiomyopathy. He does have hypothyroidism noted on lab work and thyroid should be replaced we will defer to hospitalist. I also talked to him about risk of sudden cardiac given his cardiomyopathy. He does have frequent PVCs and short runs of ventricular ectopy on nurse monitoring. He verbalizes understanding of this risk. He is agreeable to wear a LifeVest. Will order LifeVest and this should be put on before discharge. Alcohol is discouraged (5) CKD (chronic kidney disease): Code(s): N18.9 - Chronic kidney disease, unspecified Status: Acute Assessment and Plan: Unknown baseline creatinine. Likely some degree of cardiorenal syndrome (6) Current every day smoker: Code(s): F17.200 - Nicotine dependence, unspecified, uncomplicated Status: Acute Assessment and Plan: Counseling performed (7) Leg cramps: Code(s): R25.2 - Cramp and spasm Status: Acute Assessment and Plan: Likely has lower extremity peripheral vascular disease due to chronic tobacco use. Will order bilateral lower extremity arterial Doppler (8) Hyperlipidemia: Code(s): E78.5 - Hyperlipidemia, unspecified Status: Acute Assessment and Plan: Will add atorvastatin 20 mg daily (9) Alcohol use: Code(s): Z78.9 - Other specified health status Status: Acute Assessment and Plan: He does drink 3-6 beers several nights per week. Counseling performed History of Present Illness History of Present Illness Consult date/time: 02/20/24 09:26 Requesting physician: Sofy Nava PA-C Consult reason: congestive heart failure Reason For Visit: COPD EXACERBATION,NEW ONSET CHF,ACUTE HYPOXIC RESP Narrative: Reason for consultation: New onset CHF Date of service 02/20/2024 Requesting provider: Sofy Nava History patient is a 68-year-old man who has a 6 month history of progressively worsening shortness of breath. He has also a sensation of extreme exhaustion with almost any activity. This is progressed to the point that he is dyspneic with almost any activity and is even waking up at night because of shortness of breath. Does have a long-term chronic smoking history and smokes 2 packs per day. He recently saw Dr. Alexis who started him on inhalers for treatment of COPD. Because of ongoing symptoms however he came to the hospital for further workup evaluati
--- NOTE | 2024-02-20 10:17 | P.SEDATION_ITS ---
Moderate Sedation Note-Pt Data Patient Data Diagnosis: newly diagnosed cardiomyopathy Present Complaint: shortness of breath Procedure to be performed/Plan: coronary angiography Allergies Allergy/AdvReac Type Severity Reaction Status Date / Time codeine AdvReac Mild Nausea Verified 02/18/24 08:07 Home Medications Medication Instructions Recorded Confirmed Type albuterol sulfate 90 mcg/actuation 1 puff inhalation Q4H PRN 01/13/24 02/18/24 Rx aerosol inhaler shortness of breath or wheezing #8.5 grams aspirin 81 mg tablet,delayed 81 mg PO DAILY 01/13/24 02/18/24 History release (Adult Low Dose Aspirin) prednisone 20 mg tablet 40 mg PO DAILY #10 tabs 01/13/24 02/18/24 Rx bupropion HCl 150 mg 24 hr tablet, 150 mg PO QAM #90 tabs 02/10/24 02/18/24 Rx extended release (Wellbutrin XL) cholecalciferol (vitamin D3) 1,250 1,250 mcg PO WEEKLY #14 tabs 02/10/24 02/18/24 Rx mcg (50,000 unit) tablet tamsulosin 0.4 mg capsule See Rx Instructions .Route 02/19/24 Rx .COMPLEX #30 caps Current Medications: Active Medications Acetaminophen (Acetaminophen 325 Mg Tablet) 650 mg PO Q4H PRN PRN Reason: Mild Pain (1-3) or Fever Albuterol/Ipratropium (Ipratropium 0.5 Mg/Albuterol Sulfate 2.5 Mg Ampul.Neb 3 Ml) 3 ml INHALATION Q6HRT [facility] Last Admin: 02/20/24 07:52 Dose: 3 ml Aspirin (Aspirin 81 Mg Enteric Tablet) 81 mg PO DAILY [facility] Last Admin: 02/20/24 08:45 Dose: 81 mg Atorvastatin Calcium (Atorvastatin 20 Mg Tablet) 20 mg PO DAILY [facility] Bupropion HCl (Bupropion Hcl Xl (24 Hr) 150 Mg Tabcr) 150 mg PO QAM [facility] Last Admin: 02/20/24 08:45 Dose: 150 mg Carvedilol (Carvedilol 3.125 Mg Tablet) 3.125 mg PO Q12HR [facility] Ergocalciferol (Ergocalciferol 50,000 Units Capsule) 50,000 units PO WEEKLY [facility] Furosemide (Furosemide 40 Mg Tablet) 40 mg PO DAILY [facility] Guaifenesin (Guaifenesin 12 Hr 600 Mg Tabcr) 600 mg PO Q12HR [facility] Last Admin: 02/20/24 08:45 Dose: 600 mg Ceftriaxone Sodium (Rocephin 1 Gm/Ns 50 Ml) 1 gm in 50 mls @ 100 mls/hr IVPB Q24H [facility] Last Infusion: 02/19/24 17:01 Dose: Infused Azithromycin (Zithromax) 500 mg in 250 mls @ 250 mls/hr IVPB Q24H [facility] Last Infusion: 02/19/24 18:10 Dose: Infused Levothyroxine Sodium (Levothyroxine Sodium 50 Mcg Tablet) 50 mcg PO DAILY@0630 [facility] Last Admin: 02/20/24 08:45 Dose: 50 mcg Melatonin (Melatonin 3 Mg Tablet) 3 mg PO HS [facility] Last Admin: 02/19/24 21:11 Dose: 3 mg Methylprednisolone Sodium Succinate (Methylprednisolone Sod Succ 125 Mg Vial) 60 mg IV PUSH Q12H [facility] Last Admin: 02/20/24 05:20 Dose: 60 mg Nitroglycerin (Nitroglycerin Sl 0.4 Mg Tablet) 0.4 mg SUBLINGUAL Q5MIN PRN PRN Reason: Chest Pain Perflutren Lipid Microsphere (Perflutren Lipid Microspheres 1.5 Ml Vial Diluted To 10 Ml Total Volume) 0 ml IV PUSH ONCE PRN; Protocol PRN Reason: adequate visualization Stop: 02/21/24 14:51 Sacubitril/Valsartan (Sacubitril/Valsartan 24-26 Mg Tablet) 1 tab PO Q12HR [facility] Tamsulosin HCl (Tamsulosin Hcl 0.4 Mg Capsule) 0.4 mg PO QHS [facility] Last Admin: 02/19/24 20:13 Dose: 0.4 mg Sedation/Anesthesia: No previous sedation/anesthesia problems (including family history). [facility] Past Medical History Medical History (Updated 02/20/24 @ 09:37 by Milad Frye MD) BPH (benign prostatic hyperplasia) Cardiomyopathy CKD (chronic kidney disease)
--- NOTE | 2024-02-20 10:17 | WPDMODSED ---
Moderate Sedation Note-Pt Data Patient Data Diagnosis: newly diagnosed cardiomyopathy Present Complaint: shortness of breath Procedure to be performed/Plan: coronary angiography Allergies Allergy/AdvReac Type Severity Reaction Status Date / Time codeine AdvReac Mild Nausea Verified 02/18/24 08:07 Home Medications Medication Instructions Recorded Confirmed Type albuterol sulfate 90 mcg/actuation 1 puff inhalation Q4H PRN 01/13/24 02/18/24 Rx aerosol inhaler shortness of breath or wheezing #8.5 grams aspirin 81 mg tablet,delayed 81 mg PO DAILY 01/13/24 02/18/24 History release (Adult Low Dose Aspirin) prednisone 20 mg tablet 40 mg PO DAILY #10 tabs 01/13/24 02/18/24 Rx bupropion HCl 150 mg 24 hr tablet, 150 mg PO QAM #90 tabs 02/10/24 02/18/24 Rx extended release (Wellbutrin XL) cholecalciferol (vitamin D3) 1,250 1,250 mcg PO WEEKLY #14 tabs 02/10/24 02/18/24 Rx mcg (50,000 unit) tablet tamsulosin 0.4 mg capsule See Rx Instructions .Route 02/19/24 Rx .COMPLEX #30 caps Current Medications: Active Medications Acetaminophen (Acetaminophen 325 Mg Tablet) 650 mg PO Q4H PRN PRN Reason: Mild Pain (1-3) or Fever Albuterol/Ipratropium (Ipratropium 0.5 Mg/Albuterol Sulfate 2.5 Mg Ampul.Neb 3 Ml) 3 ml INHALATION Q6HRT [facility] Last Admin: 02/20/24 07:52 Dose: 3 ml Aspirin (Aspirin 81 Mg Enteric Tablet) 81 mg PO DAILY [facility] Last Admin: 02/20/24 08:45 Dose: 81 mg Atorvastatin Calcium (Atorvastatin 20 Mg Tablet) 20 mg PO DAILY [facility] Bupropion HCl (Bupropion Hcl Xl (24 Hr) 150 Mg Tabcr) 150 mg PO QAM [facility] Last Admin: 02/20/24 08:45 Dose: 150 mg Carvedilol (Carvedilol 3.125 Mg Tablet) 3.125 mg PO Q12HR [facility] Ergocalciferol (Ergocalciferol 50,000 Units Capsule) 50,000 units PO WEEKLY [facility] Furosemide (Furosemide 40 Mg Tablet) 40 mg PO DAILY [facility] Guaifenesin (Guaifenesin 12 Hr 600 Mg Tabcr) 600 mg PO Q12HR [facility] Last Admin: 02/20/24 08:45 Dose: 600 mg Ceftriaxone Sodium (Rocephin 1 Gm/Ns 50 Ml) 1 gm in 50 mls @ 100 mls/hr IVPB Q24H [facility] Last Infusion: 02/19/24 17:01 Dose: Infused Azithromycin (Zithromax) 500 mg in 250 mls @ 250 mls/hr IVPB Q24H [facility] Last Infusion: 02/19/24 18:10 Dose: Infused Levothyroxine Sodium (Levothyroxine Sodium 50 Mcg Tablet) 50 mcg PO DAILY@0630 [facility] Last Admin: 02/20/24 08:45 Dose: 50 mcg Melatonin (Melatonin 3 Mg Tablet) 3 mg PO HS [facility] Last Admin: 02/19/24 21:11 Dose: 3 mg Methylprednisolone Sodium Succinate (Methylprednisolone Sod Succ 125 Mg Vial) 60 mg IV PUSH Q12H [facility] Last Admin: 02/20/24 05:20 Dose: 60 mg Nitroglycerin (Nitroglycerin Sl 0.4 Mg Tablet) 0.4 mg SUBLINGUAL Q5MIN PRN PRN Reason: Chest Pain Perflutren Lipid Microsphere (Perflutren Lipid Microspheres 1.5 Ml Vial Diluted To 10 Ml Total Volume) 0 ml IV PUSH ONCE PRN; Protocol PRN Reason: adequate visualization Stop: 02/21/24 14:51 Sacubitril/Valsartan (Sacubitril/Valsartan 24-26 Mg Tablet) 1 tab PO Q12HR [facility] Tamsulosin HCl (Tamsulosin Hcl 0.4 Mg Capsule) 0.4 mg PO QHS [facility] Last Admin: 02/19/24 20:13 Dose: 0.4 mg Sedation/Anesthesia: No previous sedation/anesthesia problems (including family history). [facility] Past Medical History Medical History (Updated 02/20/24 @ 09:37 by Milad Frye MD) BPH (benign prostatic hyperplasia) Cardiomyopathy CKD (chronic kidney disease) COPD (chronic obstructive pulmonary disease) Current every day smoker CVA (cerebral vascular accident) (2019) HLD (hyperlipidemia) Kidney stones Leg cramps Vitamin D deficiency Surgical History Surgical History History of lithotripsy Family History Family History Mother Cancer Father Cancer Social History Social History Smoking packs per day: 2 Smoking cigarettes per day: 40.0 Years smoked: 40 Smoking pack-years: 8
--- NOTE | 2024-02-20 12:01 | WPDCARDPROC ---
Cardiac Cath Procedure Note Date of procedure:: 02/20/24 Performing physician:: Dank Baker MD Indication:: newly diagnosed cardiomyopathy Brief clinical history:: this is a 68-year-old man with a history of alcohol abuse and heavy cigarette smoking who presented the hospital with worsening dyspnea. He has been found to have poor left ventricular systolic function and in this setting and angiogram has been recommended. He is not reporting anginal type chest pain. He has chronic kidney disease with a creatinine of 1.9. Procedure Procedure performed:: Coronary angiography left ventricular central aortic hemodynamics Sedation/Medication given:: fentanyl 25 mg Versed 2 mg case start time 1128 a.m. case end time 11:43 a.m. sedation provided by Janette Cavanaugh RN, trained observer Access site:: right femoral artery Estimated blood loss:: minimal Procedure note:: patient was brought to the cardiac catheterization lab where the right femoral triangle was prepared and draped in the usual fashion. Anesthesia was given with 10% lidocaine infiltrated locally. Using the modified Seldinger technique the femoral artery was punctured and a 5 Irish vascular sheath was placed. After this I used an 5 Irish angled pigtail catheter to measure left-sided hemodynamics and pullback pressures across the aortic valve. Left ventriculogram was not performed because of renal insufficiency. I then used a 5 Irish FL4 catheter to engage inject the left coronary artery in multiple projections and then a 5 Irish JR4 catheter to engage and inject the right coronary artery in 3 projections. After this the cineangiograms were reviewed and the case was terminated he was taken to the holding area for manual sheath removal. Ankle brachial index earlier today shows significant peripheral arterial disease and I did not feel the patient was an appropriate candidate for an Angio-Seal device for that reason. 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 Findings:: Hemodynamics: Central aortic pressure is 128 over 64 left ventricle 128 over by end-diastolic 20 there is no gradient on pullback across the aortic valve. The left main coronary artery is medium in caliber and is nicely patent the left anterior descending is a medium caliber artery which has an area of adventitial calcium in the proximal 3rd of the vessel. Just after this there is about 60% stenosis in the LAD in the midportion. This does not appear to be flow-limiting disease distal to this the vessel is nicely patent the circumflex is a medium caliber artery giving rise to the marginal branches. After the 1st marginal branch the AV groove/ trunk of the circumflex has about 70% stenosis prior to the 2nd marginal branch and then a posterior branch. These more distal branches are medium in caliber and are patent the right coronary artery is large caliber and dominant to the circulation giving rise to good size RPDA and several are posterolateral vessels. There is proximal stenosis in the right coronary artery just after the ostium representing about 50-60% stenosis. There is no pressure damping on engagement of the right coronary artery with the catheter. The remainder of the right coronary is angiographically free of disease. Conclusion:: 1. Right coronary dominant circulation with angiographically mild coronary disease involving the mid LAD, mid circumflex and proximal RCA as detailed above. None of these lesions appear to be Flow-limiting except for the mid circumflex lesion which appears to be about 70% stenosis. 2. Severe global left ventricular systolic dysfunction noted on echo which is out of proportion to the coronary disease that has been identified. This cardiomyopathy therefore does not appear to be very beautiful to this angiographically mild coronary disease 3. left-sided hemodynamics demonstrat
--- NOTE | 2024-02-20 14:05 | PM.IMPN ---
Progress Note: A&P Assessment and Plan (1) Congestive heart failure (CHF): Code(s): I50.9 - Heart failure, unspecified Status: Acute Assessment and Plan: Patient presented to the ED due to worsening shortness of breath. Patient had no history of CHF. BNP 13602. echo EF of 20-25% with grade 3 diastolic dysfunction and moderate mitral valve regurgitation On presentation patient had elevated tropes of 0.039 -> 0.225 -> 0.238 -> 0.180 Cardiology consulted. Furosemide changed from IV to p.o. 40 mg daily Starting on Entresto, carvedilol, Jardiance and spironolactone. Cardiac catheterization 02/19 Life vest on discharge (2) COPD exacerbation: Code(s): J44.1 - Chronic obstructive pulmonary disease with (acute) exacerbation Status: Acute Assessment and Plan: - DuoNebs Q6H ADELAIDA - continue Solu-Medrol IVP - start to wean off IV steroids - start azithromycin and ceftriaxone on 02/17 - Mucinex ADELAIDA (3) Acute hypoxemic respiratory failure: Code(s): J96.01 - Acute respiratory failure with hypoxia Status: Acute Assessment and Plan: - CXR: Mild pulmonary edema. Small pleural effusions. Severe emphysema. - BNP 14,800 - echo EF of 20-25% with grade 3 diastolic dysfunction and moderate mitral valve regurgitation - daily weights and monitor I&Os - trend renal function - troponin elevated, see below - telemetry monitoring - suspect multifactorial: new onset CHF and/or COPD exacerbation. Cannot rule out NSTEMI or PE. - hypoxia resolved. (4) Elevated troponin: Code(s): R79.89 - Other specified abnormal findings of blood chemistry Status: Acute Assessment and Plan: - EKG, initial: Sinus tachycardia with occasional PVCs, rate 133, moderate intraventricular conduction delay, nonspecific ST and T-wave abnormality. No previous for comparison. - EKG, repeat (1): Sinus rhythm with sinus arrhythmia, rate 77, incomplete RBBB, left ventricular hypertrophy and ST-T change, possible septal VT infarct probably old. Awaiting formal read. - CXR: Mild pulmonary edema. Small pleural effusions. Severe emphysema. - Troponin: 0.039 -> 0.225 -> 0.238 -> 0.180 - ASA 324 given and SL nitro PRN - lipid panel normal , A1C 5.3, and TSH 15.2 (5) Current every day smoker: Code(s): F17.200 - Nicotine dependence, unspecified, uncomplicated Status: Acute Assessment and Plan: - 1.5-2 PPD x 45 years - interested in cessation, declined nicotine patch - currently on Wellbutrin XL Plan Diet: heart healthy GI Prophylaxis: not currently indicated DVT Prophylaxis: SCDs Lines: peripheral Code Status: full code Subjective Date/time seen: 02/20/24 14:05 Interval history: Patient was seen after he had catheterization done. His partner was at bedside. Discussed with him the importance of drinking and smoking cessation in regards to his overall health with quantity and quality of life. Patient is no longer having any chest pain shortness a breath. he denies any lightheadedness or dizziness upon standing. Plan to start Entresto tomorrow. Exam Narrative: GENERAL: Comfortable, no acute distress HENMT: moist mucous membranes NECK: no lymphadenopathy RESPIRATORY: clear to auscultation although distant, no increased respiratory effort CARDIO: distant heart sounds. GI: soft, nontender, bowel sounds present SKIN/EXTREMITIES: no rashes, no edema, no redness or tenderness NEURO: PROM intact, answers questions appropriately, A&O x4 Objective Data Vital Signs Vital Signs: Vital Signs - 24 hr 02/19/24 16:00 02/19/24 19:26 02/19/24 19:37 Temperature 98.2 F Pulse Rate 90 103 H Pulse Rate [Right Pedal (Dorsalis Pedis)] Respiratory Rate 18 Blood Pressure 123/85 Pulse Oximetry 95 Oxygen Delivery Room Air Oxygen Flow Rate 02/19/24 20:26 02/19/24 20:00 02/19/24 23:50 Temperature Pulse Rate 101 H 99
--- NOTE | 2024-02-20 14:32 | PC.NURSE ---
This patient, Jayro Silvestre, was received from the cleaner laboratory equipment on 02/20/24 at 1432. Patient/family oriented to unit policies and routines. Groin dressing site assessed with ÁLVARO Murphy, clean, dry, and intact.
[2024-02-20 16:49] LABS: Glucose Point of Care 159 mg/dl (65-105)
[2024-02-20] MEDS: AZITHROMYCIN 500 MG/NS 250 ML 500 MG/250 ML BAG 250 MG IVPB (17:01)
[2024-02-20] MEDS: SACUBITRIL/VALSARTAN 24-26 MG TABLET 1 TAB PO (20:34)
[2024-02-20] MEDS: TAMSULOSIN HCL 0.4 MG CAPSULE PO (20:34)
[2024-02-20] MEDS: carvediloL 3.125 MG TABLET PO (20:34)
[2024-02-20] MEDS: MELATONIN 3 MG TABLET PO (20:34)
[2024-02-21] VITALS (23 sets, daily range): BP systolic 101–124; BP diastolic 67–82; PULSE 65–89; RESP 16–18; TEMP 35.8–36.4; O2SAT 90–98
[2024-02-21] MEDS: IPRATROPIUM 0.5 MG/ALBUTEROL SULFATE 2.5 MG AMPUL.NEB 3 ML INHALATION ×4 (02:23→21:11)
[2024-02-21 04:39] LABS: Hemoglobin 16.8 g/dL (14.0-18.0); Mean Corpuscular HGB Conc 32.9 g/dl (32-36); Mean Corpuscular Hemoglobin 31.7 pg (26-34); Mean Corpuscular Volume 96.2 fl (80-100); Mean Platelet Volume 11.7 fl (7.4-10.4); Platelet Count Result 207 k/mm3 (150-375); Red Cell Distribution Width 13.9 % (11.5-14.5); White Blood Count 13.1 K/mm3 (4.5-10.0)
[2024-02-21 04:49] LABS: Anion Gap 5 mmol/L (4-12); Blood Urea Nitrogen 54 mg/dL (9-20); Calcium 8.6 mg/dL (8.4-10.2); Carbon Dioxide 29 mmol/L (22-30); Chloride 103 mmol/L (98-107); Estimated CRCL calculation 35 ml/min; Estimated Glomerular Filt Rate 32; Glucose 123 mg/dL (65-110); Potassium 4.9 mmol/L (3.4-5.0); Sodium 137 mmol/L (137-145)
[2024-02-21] MEDS: methylPREDNISolone SOD SUCC 125 MG VIAL 60 MG IV PUSH (05:23)
[2024-02-21] MEDS: LEVOTHYROXINE SODIUM 50 MCG TABLET PO (05:24)
[2024-02-21] MEDS: predniSONE 20 MG TABLET 40 MG PO (08:07)
[2024-02-21] MEDS: ASPIRIN 81 MG ENTERIC TABLET PO (08:07)
[2024-02-21] MEDS: buPROPion HCL XL (24 HR) 150 MG TABCR PO (08:07)
[2024-02-21] MEDS: guaiFENesin 12 HR 600 MG TABCR PO ×2 (08:07→21:27)
[2024-02-21] MEDS: ATORVASTATIN 20 MG TABLET PO (08:07)
[2024-02-21] MEDS: carvediloL 3.125 MG TABLET PO ×2 (08:07→21:26)
[2024-02-21] MEDS: SACUBITRIL/VALSARTAN 24-26 MG TABLET 1 TAB PO ×2 (08:07→21:27)
[2024-02-21] MEDS: FUROSEMIDE 40 MG TABLET PO (08:08)
--- NOTE | 2024-02-21 10:21 | PM.PNCARD ---
Progress Note: A&P Assessment and Plan (1) Congestive heart failure (CHF): Code(s): I50.9 - Heart failure, unspecified Status: Acute (2) Cardiomyopathy: Code(s): I42.9 - Cardiomyopathy, unspecified Status: Acute Plan 68-year-old man with modest coronary artery disease but otherwise nonischemic cardiomyopathy. This could be related to excessive ethanol use. Today I will reduce the dose of furosemide as he is essentially euvolemic. Will add modest dose of spironolactone and Jardiance to complete his guideline directed medical therapy. He plans to receive his LifeVest today some time. If he is stable likely discharge tomorrow with plans for outpatient follow-up with Dr. Uday Baker MD [facility] Subjective Date/time seen: date of service:02/21/24 10:21 Interval history: Follow-up visit in this 68-year-old man with: Systolic left ventricular dysfunction /CHF with low ejection fraction. Catheterization yesterday demonstrates modest coronary artery disease which is not the cause of his cardiomyopathy. He has responded well to initiation of standard guideline directed medical therapy for low ejection fraction. Discussed with the patient optimal medical therapy as well as the need to supply him with a life vest prior to discharge. Exam Const: General: comfortable and no acute distress Other: Breath sounds are tubular but otherwise clear throughout both lung jolley no rales no wheezing HENMT: Mouth: Yes moist mucous membranes Eyes: Sclera: sclerae normal Neck: Neck: supple Resp: Effort & Inspection: normal respiratory effort Other: breath sounds are symmetrically diminished bilaterally but otherwise basically clear as detailed above Cardio: Rate: regular rate Rhythm: regular rhythm Other: PMI difficult to palpate first and second heart sounds diminished in intensity but otherwise normal GI: GI Palp: Yes Soft to palpation Auscultation: normal bowel sounds Skin: General skin exam: normal color Neuro: Other: alert and oriented x3 Extrem: General: normal to inspection Other: no edema Objective Data Vital Signs Vital Signs: Vital Signs - 24 hr 02/20/24 12:00 02/20/24 12:10 02/20/24 12:15 Temperature Pulse Rate 72 78 82 Pulse Rate [Right Pedal (Dorsalis Pedis)] Respiratory Rate 15 14 13 Blood Pressure 126/78 121/83 121/83 Pulse Oximetry 90 90 88 L Oxygen Delivery Room Air Room Air Nasal Cannula Oxygen Flow Rate 2 02/20/24 12:20 02/20/24 12:25 02/20/24 12:30 Temperature Pulse Rate 74 70 82 Pulse Rate [Right Pedal (Dorsalis Pedis)] Respiratory Rate 15 13 12 Blood Pressure 119/91 H 125/73 121/83 Pulse Oximetry 94 96 95 Oxygen Delivery Nasal Cannula Nasal Cannula Nasal Cannula Oxygen Flow Rate 2 2 2 02/20/24 12:45 02/20/24 12:45 02/20/24 13:00 Temperature Pulse Rate 93 75 Pulse Rate [Right Pedal (Dorsalis Pedis)] 93 Respiratory Rate 14 19 Blood Pressure 124/86 126/81 Pulse Oximetry 96 96 Oxygen Delivery Nasal Cannula Nasal Cannula Oxygen Flow Rate 2.0 2.0 02/20/24 13:00 02/20/24 13:15 02/20/24 13:15 Temperature Pulse Rate 78 Pulse Rate [Right Pedal (Dorsalis Pedis)] 94 97 Respiratory Rate 19 Blood Pressure 131/96 H Pulse Oximetry 96 Oxygen Delivery Nasal Cannula Oxygen Flow Rate 2.0 02/20/24 13:30 02/20/24 13:30 02/20/24 13:45 Temperature Pulse Rate 94 77 Pulse Rate [Right Pedal (Dorsalis Pedis)] 97 Respiratory Rate 14 15 Blood Pressure 125/93 H 120/98 H Pulse Oximetry 96 95 Oxygen Delivery Nasal Cannula Room Air Oxygen Flow Rate 2.0 02/20/24 13:45 02/20/24 14:00 02/20/24 14:30 Temperature Pulse Rate 70 78 Pulse Rate [Right Pedal (Dorsalis Pedis)] 78 Respiratory Rate 12 16 Blood Pressure 123/77 133/85 Pulse Oximetry 96 94 Oxygen Delivery Room Air Room Air Oxygen Flow Rate 02/20/24 14:35 02/20/24 14:45 02/20/24 1
--- NOTE | 2024-02-21 15:05 | PM.IMPN ---
Progress Note: A&P Assessment and Plan (1) Congestive heart failure (CHF): Code(s): I50.9 - Heart failure, unspecified Status: Acute Assessment and Plan: Patient presented to the ED due to worsening shortness of breath. Patient had no history of CHF. BNP 43650. echo EF of 20-25% with grade 3 diastolic dysfunction and moderate mitral valve regurgitation On presentation patient had elevated tropes of 0.039 -> 0.225 -> 0.238 -> 0.180 Cardiology consulted. Furosemide changed from IV to p.o. 40 mg daily Starting on Entresto, carvedilol, Jardiance and spironolactone. Cardiac catheterization 02/19 Life vest on discharge [employer] recommending patient stay off of work until he can follow-up as an outpatient in their office. (2) COPD exacerbation: Code(s): J44.1 - Chronic obstructive pulmonary disease with (acute) exacerbation Status: Acute Assessment and Plan: - DuoNebs Q6H ADELAIDA - Transition to p.o. steroids. - Transition to p.o. Augmentin - Mucinex ADELAIDA (3) Acute hypoxemic respiratory failure: Code(s): J96.01 - Acute respiratory failure with hypoxia Status: Acute Assessment and Plan: - CXR: Mild pulmonary edema. Small pleural effusions. Severe emphysema. - BNP 14,800 - echo EF of 20-25% with grade 3 diastolic dysfunction and moderate mitral valve regurgitation - daily weights and monitor I&Os - trend renal function - troponin elevated, see below - telemetry monitoring - suspect multifactorial: new onset CHF and/or COPD exacerbation. Cannot rule out NSTEMI or PE. - hypoxia resolved. (4) Elevated troponin: Code(s): R79.89 - Other specified abnormal findings of blood chemistry Status: Acute Assessment and Plan: - EKG, initial: Sinus tachycardia with occasional PVCs, rate 133, moderate intraventricular conduction delay, nonspecific ST and T-wave abnormality. No previous for comparison. - EKG, repeat (1): Sinus rhythm with sinus arrhythmia, rate 77, incomplete RBBB, left ventricular hypertrophy and ST-T change, possible septal GA infarct probably old. Awaiting formal read. - CXR: Mild pulmonary edema. Small pleural effusions. Severe emphysema. - Troponin: 0.039 -> 0.225 -> 0.238 -> 0.180 - ASA 324 given and SL nitro PRN - lipid panel normal , A1C 5.3, and TSH 15.2 (5) Current every day smoker: Code(s): F17.200 - Nicotine dependence, unspecified, uncomplicated Status: Acute Assessment and Plan: - 1.5-2 PPD x 45 years - interested in cessation, declined nicotine patch - currently on Wellbutrin XL Plan Diet: heart healthy GI Prophylaxis: not currently indicated DVT Prophylaxis: SCDs Lines: peripheral Code Status: full code Subjective Date/time seen: 02/21/24 15:05 Interval history: Patient doing well today. He has no complaints. Cardiology wanted to keep him 1 more night to monitor cardiac and respiratory status with the initiation of his new medications. I discussed with Cardiology today patient's work status and he recommended patient stay off work until he can follow-up in the office with them Exam Narrative: GENERAL: Comfortable, no acute distress HENMT: moist mucous membranes NECK: no lymphadenopathy RESPIRATORY: clear to auscultation although distant, no increased respiratory effort CARDIO: distant heart sounds. GI: soft, nontender, bowel sounds present SKIN/EXTREMITIES: no rashes, no edema, no redness or tenderness NEURO: PROM intact, answers questions appropriately, A&O x4 Objective Data Vital Signs Vital Signs: Vital Signs - 24 hr 02/20/24 15:39 02/20/24 16:00 02/20/24 17:00 Temperature 97.6 F 97.9 F 97.4 F L Pulse Rate 69 81 90 Respiratory Rate 18 20 20 Blood Pressure 109/64 111/77 122/96 H Pulse Oximetry 91 92 96 Oxygen Delivery 02/20/24 18:00 02/20/24 16:00 02/20/24 19:00 Temperature 97.9 F 97.4 F L Pulse Rate 102 H 76
[2024-02-21] MEDS: AZITHROMYCIN 250 MG TABLET 500 MG PO (15:48)
[2024-02-21] MEDS: SPIRONOLACTONE 25 MG TABLET PO (15:48)
[2024-02-21] MEDS: MELATONIN 3 MG TABLET PO (21:27)
[2024-02-21] MEDS: TAMSULOSIN HCL 0.4 MG CAPSULE PO (21:27)
[2024-02-22] VITALS (9 sets, daily range): BP systolic 115; BP diastolic 73; PULSE 66–86; RESP 18–20; TEMP 36.3; O2SAT 96
[2024-02-22] MEDS: IPRATROPIUM 0.5 MG/ALBUTEROL SULFATE 2.5 MG AMPUL.NEB 3 ML INHALATION ×2 (02:42→07:38)
[2024-02-22 04:44] LABS: Hematocrit 53.9 % (42.0-52.0); Hemoglobin 18.4 g/dL (14.0-18.0); Mean Corpuscular HGB Conc 34.1 g/dl (32-36); Mean Corpuscular Hemoglobin 32.7 pg (26-34); Mean Corpuscular Volume 95.7 fl (80-100); Mean Platelet Volume 11.5 fl (7.4-10.4); Platelet Count Result 212 k/mm3 (150-375); Red Blood Count 5.63 M/mm3 (4.6-6.20); Red Cell Distribution Width 13.8 % (11.5-14.5)
[2024-02-22 05:02] LABS: Anion Gap 5 mmol/L (4-12); Blood Urea Nitrogen 59 mg/dL (9-20); Calcium 8.5 mg/dL (8.4-10.2); Carbon Dioxide 29 mmol/L (22-30); Chloride 104 mmol/L (98-107); Estimated CRCL calculation 36 ml/min; Estimated Glomerular Filt Rate 36; Glucose 85 mg/dL (65-110); Potassium 4.2 mmol/L (3.4-5.0); Sodium 138 mmol/L (137-145)
[2024-02-22] MEDS: LEVOTHYROXINE SODIUM 50 MCG TABLET PO (05:33)
[2024-02-22] MEDS: AZITHROMYCIN 250 MG TABLET 500 MG PO (09:05)
[2024-02-22] MEDS: carvediloL 3.125 MG TABLET PO (09:05)
[2024-02-22] MEDS: ASPIRIN 81 MG ENTERIC TABLET PO (09:05)
[2024-02-22] MEDS: ATORVASTATIN 20 MG TABLET PO (09:05)
[2024-02-22] MEDS: buPROPion HCL XL (24 HR) 150 MG TABCR PO (09:05)
[2024-02-22] MEDS: predniSONE 20 MG TABLET 40 MG PO (09:05)
[2024-02-22] MEDS: EMPAGLIFLOZIN 10 MG TABLET PO (09:05)
[2024-02-22] MEDS: SPIRONOLACTONE 25 MG TABLET PO (09:05)
[2024-02-22] MEDS: FUROSEMIDE 20 MG TABLET PO (09:05)
[2024-02-22] MEDS: SACUBITRIL/VALSARTAN 24-26 MG TABLET 1 TAB PO (09:05)
--- NOTE | 2024-02-22 11:15 | PM.PNCARD ---
Progress Note: A&P Assessment and Plan (1) Cardiomyopathy: Code(s): I42.9 - Cardiomyopathy, unspecified Status: Acute Plan 68-year-old man with modest coronary disease and significant nonischemic cardiomyopathy. He has been on appropriate guideline directed medical therapy and has his LifeVest device. He is therefore stable enough to be discharged at this point. I will ensure that he is contacted tomorrow to set up appropriate/timely follow-up with Dr. Frye. 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 Dank Baker MD [facility] Subjective Date/time seen: date of service:02/22/24 11:16 Interval history: Follow-up visit in this 68-year-old man with: Systolic left ventricular dysfunction /CHF with low ejection fraction. Catheterization yesterday demonstrates modest coronary artery disease which is not the cause of his cardiomyopathy. He has responded well to initiation of standard guideline directed medical therapy for low ejection fraction. Discussed with the patient optimal medical therapy as well as the need to supply him with a life vest prior to discharge. 02/22/2024: Patient is asymptomatic ambulatory on the floor and hoping to be discharged. He has his LifeVest device and is wearing it. Exam Narrative: Awake alert oriented. Appears older than stated age Const: General: comfortable and no acute distress Other: Breath sounds are tubular but otherwise clear throughout both lung jolley no rales no wheezing HENMT: Face/Nose/Sinus: Normal nares present Mouth: Yes moist mucous membranes Eyes: General: appearance normal, both eyes and all related structures Sclera: sclerae normal Neck: Neck: supple and no JVD Carotids: no bruits Chest: Other: No reproducible chest wall pain to palpation Resp: Effort & Inspection: normal respiratory effort Auscultation: clear to auscultation bilaterally Other: breath sounds are symmetrically diminished bilaterally but otherwise basically clear as detailed above Cardio: Rate: regular rate Rhythm: regular rhythm Heart sounds: no murmurs Other: PMI difficult to palpate first and second heart sounds diminished in intensity but otherwise normal GI: Inspection: non-distended Auscultation: normal bowel sounds Skin: General skin exam: normal color Neuro: Cranial nerves: Yes Normal hearing present Speech: normal speech and No Abnormal speech present Motor exam (neuro): 5/5 motor strength present throughout Sensory Exam: normal sensation Other: alert and oriented x3 Extrem: General: normal to inspection Other: no edema Psych: Mental Status: mental status grossly normal Affect: normal affect Objective Data Vital Signs Vital Signs: Vital Signs - 24 hr 02/21/24 12:00 02/21/24 14:20 02/21/24 14:33 Temperature Pulse Rate 66 76 76 Respiratory Rate 18 18 Blood Pressure Pulse Oximetry Oxygen Delivery 02/21/24 14:00 02/21/24 16:00 02/21/24 19:42 Temperature 35.8 C L 36.4 C Pulse Rate 71 80 71 Respiratory Rate 18 16 Blood Pressure 101/67 114/76 Pulse Oximetry 93 93 Oxygen Delivery 02/21/24 21:11 02/21/24 21:26 02/21/24 21:21 Temperature Pulse Rate 86 86 Respiratory Rate 18 Blood Pressure Pulse Oximetry Oxygen Delivery Room Air 02/21/24 20:00 02/22/24 00:00 02/22/24 02:42 Temperature Pulse Rate 67 66 70 Respiratory Rate 18 Blood Pressure Pulse Oximetry Oxygen Delivery 02/21/24 21:22 02/22/24 02:51 02/22/24 03:10 Temperature 36.3 C L Pulse Rate 80 73 70 Respiratory Rate 18 18 20 Blood Pressure 115/73 Pulse Oximetry 96 Oxygen Delivery 02/22/24 04:00 02/22/24 07:38 02/22/24 07:38 Temperature Pulse Rate 86 66 Respiratory Rate 18 Blood Pressure Pulse Oximetry 96 Oxygen Delivery Room Air 02/22/24 07:50 02/22/24 08:00 Temperature Pulse Rate 69
--- NOTE | 2024-02-22 13:17 | PM.DS ---
DS: Admitting Diagnosis Discharge Date 02/22/24 Admitting Diagnosis New CHF DS: Discharge Diagnosis Discharge Diagnosis (1) Congestive heart failure (CHF): Qualifiers: Heart failure type: combined systolic and diastolic Heart failure chronicity: acute Qualified Code(s): I50.41 - Acute combined systolic (congestive) and diastolic (congestive) heart failure Code(s): I50.9 - Heart failure, unspecified Status: Acute (2) COPD exacerbation: Code(s): J44.1 - Chronic obstructive pulmonary disease with (acute) exacerbation Status: Acute (3) Acute hypoxemic respiratory failure: Code(s): J96.01 - Acute respiratory failure with hypoxia Status: Acute (4) Elevated troponin: Code(s): R79.89 - Other specified abnormal findings of blood chemistry Status: Acute (5) Current every day smoker: Code(s): F17.200 - Nicotine dependence, unspecified, uncomplicated Status: Acute DS: Summary Hospital Course Hospital Course: 68 y/o M presents here with shortness of breath with PMH of COPD, BPH, and CVA (2019). The patient presents here from home via EMS for further evaluation of shortness of breath and hypoxia. Patient reports he has been short of breath for the past 6 months and has been insidious. However worsened significantly in the last month. He was unable to take his inhaler due to the severity of the shortness of breath which prompted him to call EMS. Accompanied by cough intermittent and somewhat copious. Denying fever, chills, body aches, or lower extremity swelling. Patient reports previously that he only obtained relief from his shortness of breath with oral steroids. Per EMS report, patient was outside in distress upon their arrival. Initial sat was 75% on room air. Given 2 DuoNeb treatments in route to the hospital and increased briefly 96% on RA. Arrived to [place] ED with sat of 87% on RA. No recent travel/long car rides, no recent major surgeries, did have a colonoscopy last week. Current smoker 1.5-2 PPD for the past 45 years. ED workup showed: WBC 13.0, no anemia, creatinine 1.8 and GFR 38 (no previous for comparison), initial troponin 0.039, BNP 72175, procal 0.1, UA not consistent with UTI. On presentation patient had elevated tropes of 0.039 -> 0.225 -> 0.238 -> 0.180. Viral PCR negative. CXR showed mild pulmonary edema, small pleural effusions, and severe emphysema. patient was started on IV steroids , furosemide and DuoNeb inhalers. Echocardiogram ordered due to elevated BNP. Echocardiogram showed EF of 20-25% with grade 3 diastolic dysfunction and moderate mitral valve regurgitation. Cardiology consulted. cardiology recommending cardiac catheterization. Cardiac catheterization performed on 02/19. cardiology recommended decreasing furosemide to 20 p.o. daily for home dose, adding Entresto, carvedilol, Jardiance and spironolactone to patient's medication regimen. Cardiology recommended LifeVest on discharge. Patient did well with his Entresto. Is recommended that patient stay off of work until further notice. He is to follow up with Cardiology in the office. His labs and vital signs are stable and he is medically clear for discharge at this time. Time Spent with Patient Time attestation: Total time spent providing and/or coordinating discharge services: Exam Narrative: GENERAL: Comfortable, no acute distress HENMT: moist mucous membranes NECK: no lymphadenopathy RESPIRATORY: clear to auscultation although distant, no increased respiratory effort CARDIO: distant heart sounds. GI: soft, nontender, bowel sounds present SKIN/EXTREMITIES: no rashes, no edema, no redness or tenderness NEURO: PROM intact, answers questions appropriately, A&O x4 DS: Data Data Completed and Pending Labs on day of discharge: Labs from last 24 hours 02/22/24 04:08 WBC 16.0 H RBC 5.63 Hgb 18.4 H Hct 53.9 H MCV 95.7 MCH 32.7 MCHC 34.1 RDW 13.8 Plt Count 212
== END 2024-02-22 14:14 | disposition home or self-care (01) | DRG 286 ==
LOC: ANHED 07:13 → ANH2MED 16:23
PROVIDERS: Internal Medicine Critical Care Medicine; Specialist; Student in an Organized Health Care Education/Training Program; Admitting Provider General Practice; Emergency Provider Emergency Medicine; PCP Family Medicine; Visit Provider General Practice
PROC: 4A023N7 Measurement of Cardiac Sampling and Pressure, Left Heart, Percutaneous Approach (ICD-10-PCS; CPT 93452; principal; 2024-02-20 10:45)
DX: I50.41 Acute combined systolic (congestive) and diastolic (congestive) heart failure (principal); J96.01 Acute respiratory failure with hypoxia; J44.1 Chronic obstructive pulmonary disease with (acute) exacerbation; I42.8 Other cardiomyopathies; J43.9 Emphysema, unspecified; E78.5 Hyperlipidemia, unspecified; E55.9 Vitamin D deficiency, unspecified; F17.210 Nicotine dependence, cigarettes, uncomplicated; F10.10 Alcohol abuse, uncomplicated; I34.0 Nonrheumatic mitral (valve) insufficiency; I25.10 Atherosclerotic heart disease of native coronary artery without angina pectoris; N40.0 Benign prostatic hyperplasia without lower urinary tract symptoms; N18.9 Chronic kidney disease, unspecified; R25.2 Cramp and spasm; Z79.82 Long term (current) use of aspirin; Z86.73 Personal history of transient ischemic attack (TIA), and cerebral infarction without residual deficits
CPT/HCPCS: 36415; 36600; 71045; 80048; 80053; 80061; 81001; 82805; 82948; 83036; 83605; 83690; 83735; 83880; 84145; 84439; 84443; 84484; 85025; 85027; 87040; 87637; 93005; 93458; 93922; 94640; 96361; 96365; 96374; 96375; 96376; 99285; A9270; C1887; C1894; C8929; G0378; J0456; J0696; J1644; J1940; J2250; J2919; J3010; J7030; J7040; J7512; Q9957

== ENCOUNTER 2024-04-01 12:53 | Outpatient (CLI) | payer MEDICARE, OTHER, SELFPAY ==
--- NOTE | 2024-04-01 16:15 | WPDSIXMINUTE ---
Six Minute Walk Procedure Procedure Performed Pulmonary Stress Test (6 min walk) Six Minute Walk Six Minute Walk: This is a 6 minute walk test. The test was performed and interpreted in accordance with the 2014 ERS/ATS task force guidelines. Findings: The patient's resting room air oxygen saturation measured by pulse oximetry was 99% and heart rate was 74 bpm. Patient ambulated for 426 meters and oxygen saturation remained 98 to 100%. Heart rate at the end of the study was 102 bpm. The patient did not qualify for supplemental oxygen at rest or with ambulation. There are no prior studies for comparison.
== END 2024-04-01 12:54 | disposition home or self-care (01) ==
LOC: ANHPFT 12:59
PROVIDERS: PCP Family Medicine; Visit Provider Physician Assistant
DX: J43.9 Emphysema, unspecified (principal); I50.9 Heart failure, unspecified
CPT/HCPCS: 94618

== ENCOUNTER 2024-05-06 16:15 | Outpatient (RCR) | payer MEDICARE, OTHER, SELFPAY ==
[2024-04-23 15:18] VITALS: BP 90/60; PULSE 71; RESP 16; O2SAT 98
[2024-04-23 15:46] VITALS: PULSE 71
== END 2024-05-10 14:22 | disposition home or self-care (01) ==
LOC: ANHCPREHAB 16:15
PROVIDERS: PCP Family Medicine; Visit Provider Internal Medicine Cardiovascular Disease
DX: I50.89 Other heart failure (principal)
CPT/HCPCS: 93798

== ENCOUNTER 2024-06-08 07:54 | Outpatient (CLI) | payer MEDICARE, OTHER, SELFPAY ==
[2024-07-05 16:43] VITALS: BMI 21.7
--- NOTE | 2024-07-05 16:43 | WPDSLEEPSTUD ---
Sleep Study Date of Study: 06/08/24 Ordering Provider: SANDEEP Shin Interpreting Physician: Kimberly Aguero DO Sleep Study Type: Polysomnogram Height: 1.83 m Weight: 72.802 kg Body Mass Index: 21.7 Neck Circumference (inches): 15.5 [place]: 17 Reason for Sleep Study Snoring, daytime hypersomnia Sleep History The patient is a 69-year-old male that had a sleep study ordered by the Pulmonary group for evaluation of sleep apnea. His the patient denies awakening from sleep short of breath. He denies awakening at night with heartburn, belching or cough. He frequently snores and is frequently loud enough that others complain. He denies having trouble sleeping when he has a cold. He denies waking up gasping for air throughout the night. He rarely has breathing problems at night observed by himself or others. He occasionally sweats excessively at night. He denies having heart palpitations or irregular heartbeats during the night. He frequently falls asleep during the day but never while driving. He denies sleep paralysis, cataplexy and hypnagogic / hypnopompic hallucinations. He occasionally has trouble at school or work due to sleepiness. He denies feeling afraid of going to sleep. He denies having nightmares. He occasionally remembers his dreams. He occasionally has thoughts racing through his mind. He denies feeling sad or depressed. He frequently has anxiety. He rarely has muscular tension. He denies noticing parts of his body jerk. He denies kicking during the night. He denies having crawling and aching feelings in his legs but frequently has leg cramps during the night. He denies grinding his teeth during sleep and denies awakening with morning jaw pain. He denies being bothered by pain during the day and denies being awakened by pain during the night. He occasionally wakes up feeling stiff in the morning. He occasionally wakes up with sore or achy muscles. He occasionally wakes up with pain in the neck, spine or other joints. He goes to bed at 9:00 p.m. on weekdays and between 9-10 p.m. on the weekends. It takes him 30-45 minutes to fall asleep. He wakes up 2-3 times throughout the night to adjust position in bed. He will turn the TV on and is able to fall back asleep within 15 minutes. He wakes up at 5:00 a.m. on both weekdays and weekends. He typically gets 6 hours of sleep minimum per night. He will stay in bed for 10 minutes after waking up in the morning. He currently lives alone. He denies consuming any caffeinated beverages within 2 hours of bedtime. He denies engaging in physical exercise before bedtime. He denies reading before falling asleep. He will watch television before falling asleep. He will take naps in afternoon or the evening and they are refreshing. He consumes 2 caffeinated beverages per day. He drinks 112 pack of beer per week. He smokes 1 pack of cigarettes per day. He denies recreational drug use. [facility] Past Medical History Medical History BPH (benign prostatic hyperplasia) Cardiomyopathy CKD (chronic kidney disease) COPD (chronic obstructive pulmonary disease) Current every day smoker CVA (cerebral vascular accident) (2019) HLD (hyperlipidemia) Kidney stones Leg cramps Vitamin D deficiency Surgical History Surgical History History of lithotripsy Family History Family History Mother Cancer Father Cancer Social History Social History Smoking packs per day: 1 Smoking cigarettes per day: 20.0 Years smoked: 45 Smoking pack-years: 45.00 Smoking status: Current every day smoker Tobacco type: cigarettes Second hand tobacco smoke exposure: No Alcohol intake: current Drinks per week: 20 Alcohol use details: 12pack week plus [place] Substance use: never Substance use type: does not use Do You Feel Safe in your Home?: Yes Lack of Transportation: No Lack of Food: Never True Current Housing: I Have Housing Concerned About Future Housing: No Difficulty Paying Gas/Electric Bills: No Difficulty Paying for Meds: YES Currently Unemployed: No Education: High School Diploma/GED Difficulty w/ Childcare or Family Care: No Living arrangements: alone Gender identity (if verbalized by the patient): Male Sexual Orientation (if Verbalized by the Patient): Straight or Heterosexual Spiritual care concerns: No Agree to blood products: Yes Medications Home Medications Medication Instructions Recorded Confirmed Type aspirin 81 mg tablet,delayed 81 mg PO DAILY 01/13/24 05/24/24 History release (Adult Low Dose Aspirin) bupropion HCl 150 mg 24 hr tablet, 150 mg PO QAM #90 tabs 02/10/24 05/24/24 Rx extended release (Wellbutrin XL) cholecalciferol (vitamin D3) 1,250 1,250 mcg PO WEEKLY #14 tabs 02/10/24 05/24/24 Rx mcg (50,000 unit) tablet carvedilol 3.125 mg tablet (Coreg) 3.125 mg PO Q12HR #60 tabs 02/22/24 05/24/24 Rx empagliflozin 10 mg tablet 10 mg PO DAILY #30 tabs 02/22/24 05/24/24 Rx (Jardiance) furosemide 20 mg tablet 20 mg PO DAILY #30 tabs 02/22/24 05/24/24 Rx sacubitril 24 mg-valsartan 26 mg 1 tablet PO BID #60 tabs 02/22/24 05/24/24 Rx tablet spironolactone 25 mg tablet 25 mg PO QAM #30 tabs 02/22/24 05/24/24 Rx rosuvastatin 10 mg tablet 10 mg PO DAILY 03/15/24 05/24/24 History albuterol sulfate 90 mcg/actuation See Rx Instructions .Route 03/18/24 05/24/24 Rx aerosol inhaler .COMPLEX #8.5 grams levothyroxine 88 mcg tablet 88 mcg PO DAILY #60 tabs 06/08/24 Rx fluticasone propionate 230 2 puff inhalation BID #12 grams 06/25/24 Rx mcg-salmeterol 21 mcg/actuation HFA inhaler (Advair HFA) tamsulosin 0.4 mg capsule See Rx Instructions .Route 06/25/24 Rx .COMPLEX #30 caps varenicline 1 mg tablet (Chantix 1 mg PO BID #56 tabs 06/29/24 Rx Continuing Month Box) Sleep Procedure A full night polysomnogram using the Zipari multi-channel system recorded the standard physiologic parameters including EEG, EOG, submentalis EMG, anterior tibialis EMG, EKG, body position, nasal and oral airflow using nasal pressure sensor and thermistor.? Respiratory parameters of chest and abdominal movements were recorded with Respiratory Inductance Plethysmography belts. Oxygen saturation was recorded by pulse oximetry. Video monitoring was also performed. Sleep stages, periodic limb movements, and EEG arousals were scored in 30 second epochs according to the criteria of the AASM Scoring Manual. The Apnea-Hypopnea Index was calculated using [facility] guidelines for definition of hypopnea with 4% O2 desaturations while scoring respiratory events. Sleep Architecture The total recording time was 566.3 minutes.? The total sleep time was 453.5 minutes. Sleep latency was 15.3 minutes. REM latency was 65.0 minutes. Sleep efficiency was 80.1%. The patient had 89 awakenings for an awakening index of 11.8. Wake after sleep onset time was 98.0 minutes. The patient spent 99.0 minutes, 21.8% of total sleep time in Stage N1. The patient spent 255.5 minutes, 56.3% in Stage N2. The patient spent 9.0 minutes, 2.0% in Stage N3. The patient spent 90.0 minutes, 19.8% in Stage REM sleep. Respiratory Analysis The patient had 32 hypopneas, 12 obstructive apneas, 26 mixed apneas, and 16 central apneas for an overall Apnea Hypopnea Index of 11.2. The REM Apnea Hypopnea Index was 11.3. The NREM Apnea Hypopnea Index was 11.9. The patient had a Central Apnea Hypopnea Index of 2.1. Tito-Beatty Respirations were present when the patient was in the supine position. He had a cycle length of 42.8 seconds and a circulation time of 29.5 seconds. Arousals There were 193 total arousals for an arousal index of 25.5. There were 95 spontaneous arousals for an index of 12.6. There were 28 arousals due to respiratory events for an index of 3.7. There were 31 arousals due to periodic limb movements for an index of 4.1.? There were 41 arousals due to isolated limb movements for an index of 5.4. Periodic Limb Movements The patient had 56 isolated limb movements with an index of 7.4. The patient had 77 periodic limb movements with an index of 10.2. Patient had a total of 133 limb movements with a total limb movement index of 17.6. Oximetry Data The patient had an average oxygen saturation of 92.2% in sleep with a minimum oxygen saturation of 86.0% and a maximum oxygen saturation of 98.0%. The patient had 79 oxygen desaturations that were 4% or greater resulting in an Oxygen Desaturation Index of 10.5.? The patient spent 10.2 minutes, 1.9% of total sleep time with an oxygen saturation below 88%. Snoring Profile Mild snoring was present intermittently throughout the study. Cardiac Profile The EKG showed normal sinus rhythm with frequent PVCs and intermittent bigeminy.?The patient had an average pulse rate of 58.3 bpm with a minimum pulse of rate of 34.0 bpm and a maximum pulse rate of 93.0 bpm.? EEG Profile No signs of seizure activity seen. Assessment and Plan Assessment and Plan (1) CLINT (obstructive sleep apnea): Code(s): G47.33 - Obstructive sleep apnea (adult) (pediatric) Status: Acute Assessment and Plan: The patient had an overall AHI of 11.2 with desaturation down to 86%. This is consistent with mild sleep apnea. Due to the patient's COPD, he qualifies for PAP therapy. Due to the increased number of central apneas and the presence of Tito Beatty Respirations, the patient is not a candidate for AutoPAP. I recommend that the patient have a CPAP Titration study with the use of a hypnotic to ensure we obtain enough sleep data and find an optimal pressure. (2) DATA ANALYSIS INTERN (Tito Beatty respiration): Code(s): R06.3 - Periodic breathing Status: Acute Assessment and Plan: The patient had an echocardiogram done in January 2024 that showed heart failure with a reduced ejection fraction. Tito Beatty respirations is often seen in these situations. No further cardiac workup is needed for evaluation of Tito Beatty respirations. Data The data obtained during this sleep study is adequate for interpretation. Certification This sleep study has been reviewed by a board certified sleep medicine physician.
== END 2024-06-09 06:53 | disposition home or self-care (01) ==
PROVIDERS: PCP Family Medicine; Visit Provider Physician Assistant
DX: G47.10 Hypersomnia, unspecified (principal); J44.9 Chronic obstructive pulmonary disease, unspecified; I50.41 Acute combined systolic (congestive) and diastolic (congestive) heart failure; G47.33 Obstructive sleep apnea (adult) (pediatric)
CPT/HCPCS: 95810

== ENCOUNTER 2024-07-16 10:02 | Outpatient (CLI) | payer MEDICARE, SELFPAY ==
--- NOTE | ~2024-07-16 | CT_ITS ---
EXAMINATION:CT diagnostic chest wo con DATE: 07/16/2024 10:24 INDICATION: Solitary pulmonary nodule. TECHNIQUE: Computed tomography (CT) of the chest was performed without intravenous contrast. Automate d exposure control and iterative reconstruction technique were employed. The dose-length product (DLP ) was 84.75 mGy-cm. COMPARISON: Chest CT 01/22/2024 FINDINGS: There is moderate emphysema. There is mild scarring at the lung apices. There are a few nod ules in the upper lobes measuring up to 6 mm in left upper lobe, stable from 01/22/2024. Calcified rig ht lung nodules and calcified right hilar lymph nodes are consistent with old granulomatous disease. No pleural effusion. There is left ventricular enlargement of the heart. There are coronary artery ca lcifications. No pericardial effusion. There is a small sliding hiatal hernia. Calcifications in the spleen are consistent with old granulomatous disease. There is a 9 mm cyst in the liver. There is mil d thoracic spondylosis. There is mild chronic anterior wedging of T12 and L1 vertebral bodies. IMPRESSION: 1. Lung-RADS category 2: Benign appearance or behavior. Continue annual screening with noncontrast lo w-dose chest CT in 12 months. Reviewed, dictated and finalized at location A. NT MIXER IMPRESSION: 1. Lung-RADS category 2: Benign appearance or behavior. Continue annual screeni ng with noncontrast low-dose chest CT in 12 months.
== END 2024-07-16 10:03 | disposition home or self-care (01) ==
PROVIDERS: PCP Family Medicine; Visit Provider Nurse Practitioner Family
DX: R91.1 Solitary pulmonary nodule (principal)
CPT/HCPCS: 71250

== ENCOUNTER 2025-03-07 08:53 | Outpatient (CLI) | payer MEDICARE, SELFPAY ==
--- NOTE | ~2025-03-07 | XR_ITS ---
AP view of the pelvis and AP and lateral views of the left hip Clinical history: Pain Findings: No acute fracture or dislocation is seen. Osseous alignment is anatomic. Bilateral hip and SI joint spaces are preserved. Soft tissues are unremarkable. Impression: No significant abnormality is seen. Reviewed, dictated and finalized at location . Impression: No significant abnormality is seen.
--- NOTE | ~2025-03-07 | XR_ITS ---
Lumbosacral Spine: AP and lateral views Clinical History: Pain Findings: The normal lordotic curve is maintained. The vertebral bodies and posterior elements are i ntact. The intervertebral disc spaces are preserved. There is moderate facet arthropathy at the lowe r lumbar spine. The sacroiliac joints are normally outlined. Impression: Moderate facet arthropathy, especially the lower lumbar spine. Reviewed, dictated and finalized at location . Impression: Moderate facet arthropathy, especially the lower lumbar spine.
== END 2025-03-07 08:54 | disposition home or self-care (01) ==
LOC: MICIMG 08:54
PROVIDERS: PCP Family Medicine; Visit Provider Family Medicine
DX: M25.552 Pain in left hip (principal); M54.10 Radiculopathy, site unspecified
CPT/HCPCS: 72100; 73502